=== PATIENT | male | born 1950 | race Caucasian/White ===

== ENCOUNTER → 2017-10-18 06:54 | Outpatient (CLI) | payer BC, SELFPAY ==
[2017-10-18 07:33] LABS: Absolute Lymphocyte Count 1.99 X10^3/ul (0.83-4.51); Absolute Neutrophil Count 3.2 X10^3/uL (2.0-7.7); Basophil# 0.01 X10^3/uL; Basophil% 0.2 % (0-1); Eosinophil# 0.21 X10^3/uL; Eosinophils% 3.4 % (0-5); Hematocrit 46.4 % (40-54); Hemoglobin 15.4 g/dl (13.0-16.5); Lymphocyte # 1.99 X10^3/ul (4.0); Lymphocyte % 32.7 % (19-41); Mean Corp Hgb Conc 33.2 g/gl (32-36); Mean Corpuscular Volume 90.3 fL (80-94); Monocyte# 0.66 X10^3/uL; Monocyte% 10.8 % (0-10); Neutrophil # 3.21 X10^3/uL (2.7-7.7); Neutrophil % 52.7 % (47-70); Platelet Count 198 K/mm3 (150-450); RBC Distribution Width CV 14.3 % (11.6-14.6); RBC Distribution Width SD 47.5 fl (35.1-43.9); Red Blood Count 5.14 M/mm3 (4.6-6.2); White Blood Count 6.1 K/mm3 (4.4-11.0)
[2017-10-18 07:34] LABS: POSITIVE COUNT NO; POSITIVE DIFFERENTIAL NO; POSITIVE MORPHOLOGY NO
[2017-10-18 07:36] LABS: ALB/GLOB Ratio 1.1 RATIO (0.9-2.4); AST(SGOT) 38 U/L (15-37); Alanine Aminotransfer ALT/SGPT 71 U/L (16-61); Albumin, Serum 3.9 g/dL (3.2-5.0); Alkaline Phosphatase 87 U/L (45-117); Anion Gap 6 (5-15); BUN 16 mg/dL (7-18); BUN/Creat Ratio 16.3 RATIO (10-20); Chloride 104 mmol/L (98-107); Cholesterol 128 mg/dL (200); Creatinine, Serum 0.98 mg/dL (0.70-1.30); EST Glomerular Filtration Rate 81 mL/min (>60); Est Glom Filt Rate - Afr Amer 98 mL/min (>60); Globulin 3.5 g/dL (2.2-4.2); Glucose 118 mg/dL (74-106); High Density Lipoprotein 50 mg/dL; Potassium 3.9 mmol/L (3.5-5.1); Protein, Total 7.4 g/dL (6.4-8.2); Sodium Level 140 mmol/L (136-145); Triglycerides 99 mg/dL; Very Low Density Lipoprotein 20 mg/dL (5-40)
[2017-10-18 08:51] LABS: Hemoglobin A1c 6.4 % (4.2-6.3)
== END ==
DX: E78.5 Hyperlipidemia, unspecified (principal); I25.10 Atherosclerotic heart disease of native coronary artery without angina pectoris; I10 Essential (primary) hypertension; R73.03 Prediabetes
CPT/HCPCS: 36415; 80053; 80061; 83036; 85025

== ENCOUNTER → 2018-03-01 06:37 | Outpatient (CLI) | payer BC, SELFPAY ==
[2018-03-01 07:35] LABS: ALB/GLOB Ratio 1.1 RATIO (0.9-2.4); AST(SGOT) 30 U/L (15-37); Alanine Aminotransfer ALT/SGPT 49 U/L (16-61); Albumin, Serum 3.9 g/dL (3.2-5.0); Alkaline Phosphatase 74 U/L (45-117); Anion Gap 7 (5-15); BUN 12 mg/dL (7-18); BUN/Creat Ratio 11.5 RATIO (10-20); Calcium,Total 8.7 mg/dL (8.5-10.1); Chloride 105 mmol/L (98-107); Cholesterol 118 mg/dL (200); Creatinine, Serum 1.04 mg/dL (0.70-1.30); EST Glomerular Filtration Rate 76 mL/min (>60); Est Glom Filt Rate - Afr Amer 91 mL/min (>60); Globulin 3.5 g/dL (2.2-4.2); Glucose 119 mg/dL (74-106); High Density Lipoprotein 48 mg/dL; Protein, Total 7.4 g/dL (6.4-8.2); Sodium Level 140 mmol/L (136-145); Triglycerides 131 mg/dL; Very Low Density Lipoprotein 26 mg/dL (5-40)
[2018-03-01 08:08] LABS: Hemoglobin A1c 6.1 % (4.2-6.3)
== END ==
DX: E78.5 Hyperlipidemia, unspecified (principal); I10 Essential (primary) hypertension; R73.9 Hyperglycemia, unspecified
CPT/HCPCS: 36415; 80053; 80061; 83036

== ENCOUNTER → 2018-09-15 08:51 | Outpatient (CLI) | payer BC, SELFPAY ==
[2018-09-15 10:03] LABS: ALB/GLOB Ratio 1.2 RATIO (0.9-2.4); AST(SGOT) 30 U/L (15-37); Alanine Aminotransfer ALT/SGPT 55 U/L (16-61); Alkaline Phosphatase 80 U/L (45-117); Anion Gap 6 (5-15); BUN 13 mg/dL (7-18); BUN/Creat Ratio 13.5 RATIO (10-20); Calcium,Total 8.7 mg/dL (8.5-10.1); Chloride 106 mmol/L (98-107); Cholesterol 115 mg/dL (200); Creatinine, Serum 0.96 mg/dL (0.70-1.30); EST Glomerular Filtration Rate 82 mL/min (>60); Est Glom Filt Rate - Afr Amer 100 mL/min (>60); Globulin 3.4 g/dL (2.2-4.2); Glucose 123 mg/dL (74-106); Hemoglobin A1c 6.2 % (4.2-6.3); High Density Lipoprotein 50 mg/dL; Potassium 4.2 mmol/L (3.5-5.1); Protein, Total 7.4 g/dL (6.4-8.2); Sodium Level 138 mmol/L (136-145); Triglycerides 85 mg/dL; Very Low Density Lipoprotein 17 mg/dL (5-40)
== END ==
DX: I10 Essential (primary) hypertension (principal); E78.5 Hyperlipidemia, unspecified; R73.9 Hyperglycemia, unspecified
CPT/HCPCS: 36415; 80053; 80061; 83036

== ENCOUNTER → 2019-04-02 10:09 | Outpatient (CLI) | payer BC, SELFPAY ==
[2019-04-02 11:57] LABS: Hemoglobin A1c 6.6 % (4.2-6.3)
[2019-04-02 12:13] LABS: ALB/GLOB Ratio 1.1 RATIO (0.9-2.4); AST(SGOT) 37 U/L (15-37); Alanine Aminotransfer ALT/SGPT 52 U/L (16-61); Albumin, Serum 3.8 g/dL (3.2-5.0); Alkaline Phosphatase 76 U/L (45-117); Anion Gap 9 (5-15); BUN 12 mg/dL (7-18); BUN/Creat Ratio 13.7 RATIO (10-20); Calcium,Total 8.7 mg/dL (8.5-10.1); Chloride 103 mmol/L (98-107); Creatinine, Serum 0.87 mg/dL (0.70-1.30); EST Glomerular Filtration Rate 92 mL/min (>60); Est Glom Filt Rate - Afr Amer 111 mL/min (>60); Globulin 3.5 g/dL (2.2-4.2); Glucose 110 mg/dL (74-106); Potassium 3.6 mmol/L (3.5-5.1); Protein, Total 7.3 g/dL (6.4-8.2); Sodium Level 139 mmol/L (136-145)
== END ==
DX: I10 Essential (primary) hypertension (principal); R73.9 Hyperglycemia, unspecified
CPT/HCPCS: 36415; 80053; 83036

== ENCOUNTER → 2020-02-14 06:52 | Outpatient (CLI) | payer BC, SELFPAY ==
[2020-02-14 07:46] LABS: ALB/GLOB Ratio 1.1 RATIO (0.9-2.4); AST(SGOT) 34 U/L (15-37); Alanine Aminotransfer ALT/SGPT 59 U/L (16-61); Albumin, Serum 3.8 g/dL (3.2-5.0); Alkaline Phosphatase 86 U/L (45-117); Anion Gap 5 (5-15); BUN 16 mg/dL (7-18); BUN/Creat Ratio 16.5 RATIO (10-20); Calcium,Total 8.6 mg/dL (8.5-10.1); Chloride 101 mmol/L (98-107); Cholesterol 134 mg/dL (200); Creatinine, Serum 0.97 mg/dL (0.70-1.30); EST Glomerular Filtration Rate 81 mL/min (>60); Est Glom Filt Rate - Afr Amer 98 mL/min (>60); Globulin 3.4 g/dL (2.2-4.2); Glucose 123 mg/dL (74-106); High Density Lipoprotein 44 mg/dL; Potassium 3.7 mmol/L (3.5-5.1); Protein, Total 7.2 g/dL (6.4-8.2); Sodium Level 136 mmol/L (136-145); Triglycerides 154 mg/dL; Very Low Density Lipoprotein 31 mg/dL (5-40)
[2020-02-14 08:11] LABS: Hemoglobin A1c 6.4 % (3.8-5.6)
== END ==
PROVIDERS: PCP Family Medicine
DX: I25.10 Atherosclerotic heart disease of native coronary artery without angina pectoris (principal); E78.5 Hyperlipidemia, unspecified
CPT/HCPCS: 36415; 80053; 80061; 83036

== ENCOUNTER → 2020-08-28 07:16 | Outpatient (CLI) | payer BC, SELFPAY ==
[2020-08-28 08:12] LABS: Hemoglobin A1c 6.4 % (3.8-5.6)
[2020-08-28 08:26] LABS: ALB/GLOB Ratio 1.1 RATIO (0.9-2.4); AST(SGOT) 26 U/L (15-37); Alanine Aminotransfer ALT/SGPT 45 U/L (16-61); Albumin, Serum 3.7 g/dL (3.2-5.0); Alkaline Phosphatase 99 U/L (45-117); Anion Gap 5 (5-15); BUN 13 mg/dL (7-18); BUN/Creat Ratio 13.3 RATIO (10-20); Calcium,Total 9.1 mg/dL (8.5-10.1); Chloride 106 mmol/L (98-107); Cholesterol 120 mg/dL (200); Creatinine, Serum 0.98 mg/dL (0.70-1.30); EST Glomerular Filtration Rate 81 mL/min (>60); Est Glom Filt Rate - Afr Amer 97 mL/min (>60); Globulin 3.3 g/dL (2.2-4.2); Glucose 126 mg/dL (74-106); High Density Lipoprotein 52 mg/dL; PSA,Total - Annual Screen 0.63 ng/mL (0.00-4.00); Potassium 4.3 mmol/L (3.5-5.1); Sodium Level 140 mmol/L (136-145); Triglycerides 75 mg/dL; Very Low Density Lipoprotein 15 mg/dL (5-40)
== END ==
PROVIDERS: PCP Family Medicine; Referring Provider Family Medicine; Visit Provider Family Medicine
DX: Z12.5 Encounter for screening for malignant neoplasm of prostate (principal); I10 Essential (primary) hypertension; E78.5 Hyperlipidemia, unspecified; R73.9 Hyperglycemia, unspecified
CPT/HCPCS: 36415; 80053; 80061; 83036; 84153; G0103

== ENCOUNTER → 2021-03-20 08:21 | Outpatient (CLI) | payer BC, SELFPAY ==
[2021-03-20 09:06] LABS: Hemoglobin A1c 6.2 % (3.8-5.6)
== END ==
PROVIDERS: PCP Family Medicine; Referring Provider Family Medicine; Visit Provider Family Medicine
DX: R73.9 Hyperglycemia, unspecified (principal)
CPT/HCPCS: 36415; 83036

== ENCOUNTER → 2022-01-20 | Outpatient (CLI) | payer BC, SELFPAY ==
[2022-01-20 10:56] LABS: Hemoglobin A1c 6.3 % (3.8-5.6)
== END | disposition home or self-care (01) ==
PROVIDERS: PCP Family Medicine; Referring Provider Family Medicine; Visit Provider Family Medicine
DX: R73.09 Other abnormal glucose (principal)
CPT/HCPCS: 36415; 83036

== ENCOUNTER → 2022-09-07 | Outpatient (CLI) | payer BC, SELFPAY ==
[2022-09-07 09:04] LABS: Cholesterol 122 mg/dL (200); High Density Lipoprotein 44 mg/dL; Triglycerides 107 mg/dL; Very Low Density Lipoprotein 21 mg/dL (5-40)
== END | disposition home or self-care (01) ==
LOC: LAB 07:58
PROVIDERS: PCP Family Medicine; Referring Provider Internal Medicine Cardiovascular Disease; Visit Provider Internal Medicine Cardiovascular Disease
DX: I25.10 Atherosclerotic heart disease of native coronary artery without angina pectoris (principal); E78.5 Hyperlipidemia, unspecified; I10 Essential (primary) hypertension
CPT/HCPCS: 36415; 80061

== ENCOUNTER → 2023-10-06 | Outpatient (CLI) | payer BC, SELFPAY ==
[2023-10-06 09:59] LABS: ALB/GLOB Ratio 1.2 RATIO (0.9-2.4); AST(SGOT) 28 U/L (15-37); Alanine Aminotransfer ALT/SGPT 58 U/L (16-61); Albumin, Serum 3.9 g/dL (3.2-5.0); Alkaline Phosphatase 73 U/L (45-117); Anion Gap 5 (5-15); BUN 14 mg/dL (7-18); BUN/Creat Ratio 13.7 RATIO (10-20); Calcium,Total 8.9 mg/dL (8.5-10.1); Chloride 105 mmol/L (98-107); Cholesterol 126 mg/dL (200); Creatinine, Serum 1.02 mg/dL (0.70-1.30); EST Glomerular Filtration Rate 76 mL/min (>60); Est Glom Filt Rate - Afr Amer 92 mL/min (>60); Globulin 3.2 g/dL (2.2-4.2); Glucose 134 mg/dL (74-106); High Density Lipoprotein 48 mg/dL; Potassium 3.8 mmol/L (3.5-5.1); Protein, Total 7.1 g/dL (6.4-8.2); Sodium Level 138 mmol/L (136-145); Triglycerides 112 mg/dL; Very Low Density Lipoprotein 22 mg/dL (5-40)
[2023-10-06 10:15] LABS: Hemoglobin A1c 6.4 % (3.8-5.6)
== END | disposition home or self-care (01) ==
LOC: LAB 09:10
PROVIDERS: PCP Family Medicine; Referring Provider Family Medicine; Visit Provider Family Medicine
DX: I10 Essential (primary) hypertension (principal); E78.5 Hyperlipidemia, unspecified; R73.09 Other abnormal glucose
CPT/HCPCS: 36415; 80053; 80061; 83036

== ENCOUNTER → 2024-05-01 | Outpatient (CLI) | payer BC, SELFPAY ==
--- OUTSIDE RECORDS SUMMARY | 2024-05-01 10:01 | XMS RPT_ITS | CCD ---
Author Organization [facility] ion Partnership [facility] Care Team Providers Care Manager Hydraulic Name Role Phone SHIMA BLANKENSHIP Referring Unavailable DARIO SOUSA MD Admitting Unavailable DARIO SOUSA MD Primary Care Unavailable DARIO SOUSA MD Attending Unavailable SHIMA BLANKENSHIP Consulting Unavailable PROVIDER, UNKNOWN Consulting Unavailable PROVIDER, UNKNOWN Consulting Unavailable PROVIDER, UNKNOWN Consulting Unavailable SHIMA BLANKENSHIP Consulting Unavailable ISMAEL LENTZ Admitting Unavailable ISMAEL LENTZ Primary Care Unavailable ISMAEL LENTZ Attending Unavailable PROVIDER, UNKNOWN Consulting Unavailable PROVIDER, UNKNOWN Consulting Unavailable PROVIDER, UNKNOWN Consulting Unavailable SHIMA BLANKENSHIP MD Unavailable BERLIN Unavailable Unavailable HENRIQUE, MICHAELA Unavailable Unavailable AVA WATTERS Unavailable Unavailable EMEKA BLANKENSHIP MD Unavailable JAMES MILIAN RN Unavailable Unavailable DAMON RODAS, Lisa HENDRICKSON Unavailable Eric OLIVO MD Unavailable DEIDRA PHILIPPE Unavailable Unavailable KEATON BARFIELD Unavailable Unavailable CHIQUITA HAYDEN Unavailable Unavailable Alecia Darling Unavailable Unavailable CARMEN RODAS, REUBEN Hopper Unavailable [phone] Misty RN, Nubia Unavailable Unavaila tone Crespo RN, Magda Unavailable Unavailable Unavailable Unavailable Medications Current Medications Medication Drug Class(es) Dates Sig (Normalized) Sig (Original) aspirin 81 mg delayed release oral tablet (6 sources) Platelet Aggregation Inhibitor, Nonsteroidal Anti-inflammatory Drug take 1 tablet by mouth once daily ASPIRIN ADULT LOW STRENGTH, 81MG (Oral Tablet Delayed Release) ; 1 daily (81 MG) Comments: OTC Comment on above: OTC atorvastatin 80 mg oral tablet (6 sources) HMG-CoA Reductase Inhibitor Start: 03-21-2024 atorvastatin 80 mg tablet ; 1 Tablet daily for 90 days Quantity: 90 {Tablet} Refills: 3 Ordered: 21-Mar-2024 MD SHIMA BLANKENSHIP Start: 21-Mar-2024 Start: 02-28-2023 atorvastatin 8 0 mg tablet ; 1 Tablet daily for 90 days Quantity: 90 {Tablet} Refills: 3 Ordered: 28-Feb-2023 MD SHIMA BLANKENSHIP Start: 28-Feb-2023 Comments: Mail order. Cecily Comment on above: Mail order. Cecily clopidogrel 75 mg oral tablet (12 sources) [id number] Platelet Inhibitor Start: 02-28-2023 clopidogreL 75 mg tablet ; 1 Tablet daily for 90 days Quantity: 90 {Tablet} Refills: 3 Ordered: 21-Mar-2024 MD SHIMA BLANKENSHIP Start: 21-Mar-2024 Comment on above: Mail order. losartan potassium 25 mg oral tablet (6 sources) Angiotensin 2 Receptor Yandel Start: 03-21-2024 losartan 25 mg tablet ; 1 Tablet daily for 90 days Quantity: 90 {Tablet} Refills: 3 Ordered: 21-Mar-2024 MD SHIMA BLANKENSHIP Start: 21-Mar-2024 Start: 02-28-2023 losartan 25 mg tablet ; 1 Tablet daily for 90 days Quantity: 90 {Tablet} Refills: 3 Ordered: 28-Feb-2023 MD SHIMA BLANKENSHIP Start: 28-Feb-2023 Comments: Mail order. Cecily Comment on above: Mail order. [place] 24 hr metoprolol succinate 25 mg extended release oral tablet (6 sources) beta-Adrenergic Yandel Start: 03-21-2024 metoprolol succinate ER 25 mg tablet,extended release 24 hr ; 1 Tablet daily for 90 days Quantity: 90 {Tablet} Refills: 3 Ordered: 21-Mar-2024 MD SHIMA BLANKENSHIP Start: 21-Mar-2024 Start: 02-28-2023 metoprolol suc cinate ER 25 mg tablet,extended release 24 hr ; 1 Tablet daily for 90 days Quantity: 90 {Tablet} Refills: 3 Ordered: 28-Feb-2023 MD SHIMA BLANKENSHIP Start: 28-Feb-2023 Comments: Mail order. Cecily Comment on above: Mail order. [place] sildenafil 20 mg oral tablet (6 sources) Phosphodiesterase 5 Inhibitor Start: 02-28-2023 sildenafil (pulmonary hypertension) 20 mg tablet ; 2-3 Tablet Tablet daily as needed for 0 days Quantity: 30 {Tablet} Refills: 2 Ordered: 28-Feb-2023 MD SHIMA BLANKENSHIP Start: 28-Feb-2023 Comments: Medication taken as needed. Comment on above: Medication taken as needed. Completed/Discontinued Medications Medication Drug Class(es) Dates Sig (Normalized) Sig (Original) atenolol 25 mg oral tablet (6 sources) beta-Adrenergic Yandel take 1 tablet by mouth once daily ATENOLOL, 25MG (Oral Tablet) ; 1 daily (25 MG) Status: Inactive codeine phosphate 2 mg/ml / guaiFENesin 20 mg/ml oral solution (6 sources) Opioid Agonist Start: 03-01-2016 End: 03-06-2016 take 1 [tsp_us] by mouth every four to six hours as needed for cough GUAIFENESIN AC, 100-10MG/5ML (Oral Syrup) ; 1 (one) teaspoon every 4-6 hours prn cough for 5 days Quantity: 4 {Ounce} Refills: 0 Ordered: 03-May-2016 MD Lisa JOSE Start: 01-Mar-2016 End: 06-Mar-2016 Status: Inactive Comments: Do not drive within 4 hours of taking Comment on above: Do not drive within 4 hours of taking DAILY MULTIPLE VITAMINS (Oral Tablet) (6 sources) take 1 tablet by mouth once daily DAILY MULTIPLE VITAMINS (Oral Tablet) ; 1 daily Status: Inactive FISH OIL, 1000MG (Oral Capsule) (6 sources) take 2 capsules by mouth once daily FISH OIL, 1000MG (Oral Capsule) ; 2 daily (1000 MG) Status: Inactive lisinopril 2.5 mg oral tablet (6 sources) Angiotensin Converting Enzyme Inhibitor take 1 tablet by mouth once daily LISINOPRIL, 2.5MG (Oral Tablet) ; 1 daily (2.5 MG) Status: Inactive niacin 500 mg oral tablet (6 sources) Nicotinic Acid take 1 tablet by mouth once daily NIACIN, 500MG (Oral Tablet) ; 1 daily (500 MG) Status: Inactive Paxlovid 300 mg (150 mg x 2)-100 mg tablets in a dose pack (EUA) (6 sources) Start: 06-17-2022 End: 02-28-2023 Paxlovid 300 mg (150 mg x 2)-100 mg tablets in a dose pack (EUA) ; 1 Packet as directed on dose pack;take TWO 150 mg tablets of nirmatrelvir with ONE 100 mg tablet of ritonavir twice daily for 5 days for 0 days Quantity: 1 {Packet} Refills: 0 Ordered: 28-Feb-2023 CODY Crespo Start: 17-Jun-2022 End: 28-Feb-2023 Status: Inactive pravastatin sodium 80 mg oral tablet (6 sources) HMG-CoA Reductase Inhibitor take 1 tablet by mouth once daily Pravastatin Sodium 80 MG Oral Tablet ; 1 daily (80 MG) Status: Inactive predniSONE 10 mg oral tablet (6 sources) Start: 01-17-2022 End: 01-29-2022 predniSONE 10 MG Oral Tablet ; 4 Tablets days 1,2,3; 3 tablets days 4,5,6: 2 tablets days 7,8,9: 1 tablet days 10,11,12 for 12 days Quantity: 30 {Tablet} Refills: 0 Ordered: 15-Feb-2022 MD SHIMA BLANKENSHIP Start: 17-Jan-2022 End: 29-Jan-2022 Status: Inactive Dispense as Written Comments: Take with food. Comment on above: Take with food. sulfamethoxazole 800 mg / trimethoprim 160 mg oral tablet (6 sources) Dihydrofolate Reductase Inhibitor Antibacterial, Sulfonamide Antimicrobial Start: 11-25-2011 End: 11-30-2011 take 1 tablet by mouth twice daily BACTRIM DS, 800-160MG (Oral Tablet) ; 1 (one) Tablet two times daily for 5 days Quantity: 10 {Tablet} Refills: 0 Ordered: 02-Dec-2011 MD REUBEN DARLING Start: 25-Nov-2011 End: 30-Nov-2011 Status: Inactive Comments: meds to be dispensed in office Comment on above: meds to be dispensed in office ticagrelor 90 mg oral tablet (6 sources) Start: 02-19-2018 End: 02-18-2019 take 1 tablet by mouth twice daily Brilinta 90 MG Oral Tablet ; 1 Tablet two times daily for 90 days Quantity: 180 {Tablet} Refills: 3 Ordered: 18-Feb-2019 CODY Jay Start: 19-Feb-2018 End: 18-Feb-2019 Status: Inactive Comments: Mail order. [facility] Comment on above: Mail order. [facility] zinc gluconate 50 mg oral tablet (6 sources) take 1 tablet by mouth once daily Zinc 50 MG Oral Tablet ; 1 daily (50 MG) Status: Inactive Comments: OTC Comment on above: OTC Problems Active Problems Problem Classification Problem Date Documented Date Episodic/Chronic Acute myocardial infarction (6 sources) Subendocardial infarction, initial episode of care 08-14-2018 Chronic Comment on above: Apr 2006 Administrative/social admission (20 sources) Patient encounter status; Translations: [Counseling, unspecified] 08-27-2020 Episodic Coronary atherosclerosis and other heart disease (20 sources) Coronary atherosclerosis of unspecified type of vessel, little traverse or graft; Translations: [Coronary arteriosclerosis] 02-28-2023 Chronic Comment on above: History of angioplas 2005 (no stent)History of MIStent 07/05/16 Coronary atherosclerosis and other heart disease (20 sources) Coronary atherosclerosis and other heart disease 02-11-2021 Diabetes mellitus without complication (20 sources) Hyperglycemia; Translations: [Hyperglycemia, unspecified] 02-11-2021 Episodic Comment on above: Prediabetes. A1C 6.4 %. A1c 6.2 in fall 2020 A1c 6.4% in September Disorders of lipid metabolism (20 sources) Hyperlipidemia; Translations: [Hyperlipidemia, unspecified] 02-28-2023 Chronic Essential hypertension (20 sources) Benign hypertension; Translations: [Essential (primary) hypertension] 02-28-2023 Chronic Comment on above: Stable. Headache; including migraine (20 sources) Headache; including migraine 02-11-2021 Hyperplasia of prostate (18 sources) Benign prostatic hyperplasia; Translations: [Benign prostatic hyperplasia with lower urinary tract symptoms] 08-27-2020 Chronic Immunizations and screening for infectious disease (18 sources) Encounter for immunization; Translations: [Other specified vaccinations against streptococcus pneumoniae [pneumococcus]] 02-19-2018 Episodic Miscellaneous mental health disorders (12 sources) Male erectile disorder; Translations: [Psychosexual dysfunction with inhibited sexual excitement] 02-28-2023 Chronic Mycoses (18 sources) Onychomycosis due to dermatophyte ; Translations: [Tinea unguium] 02-11-2021 Episodic Open wounds of extremities (6 sources) Open wound of forearm; Translations: [Unspecified open wound of unspecified forearm, initial encounter] 11-25-2011 Episodic Other aftercare (12 sources) Post-discharge follow-up; Translations: [Encounter for follow-up examination after completed treatment for conditions other than malignant neoplasm] 01-17-2022 Episodic Other injuries and conditions due to external causes (6 sources) At risk for falls ; Translations: [History of falling] 02-20-2017 Episodic Other male genital disorders (12 sources) Secondary erectile dysfunction; Translations: [Male erectile dysfunction, unspecified] 08-27-2020 Chronic Other nutritional; endocrine; and metabolic disorders (12 sources) Body mass index 30+ - obesity; Translations: [Obesity, unspecified] 02-12-2019 Chronic Other skin disorders (12 sources) Actinic keratosis; Translations: [Actinic keratosis] 02-28-2023 Episodic Other skin disorders (6 sources) Ingrowing toenail; Translations: [Ingrowing nail] 06-20-2016 Episodic Residual codes; unclassified (12 sources) Overweight; Translations: [Other specified conditions influencing health status] 08-20-2018 Episodic Retinal detachments; defects; vascular occlusion; and retinopathy (18 sources) Degenerative disorder of macula ; Translations: [Unspecified macular degeneration] 08-14-2018 Chronic Spondylosis; intervertebral disc disorders; other back problems (12 sources) Neck pain; Translations: [Cervicalgia] 01-17-2022 Episodic Unclassified (6 sources) [facility] Onset: 07-05-2016 07-08-2016 Comment on above: Heart cath, stent; D r Kassir Unclassified (6 sources) !Patient notification of lab results - Dr. Blankenship. The test(s) that you had done were/was an A1C (three month sugar average) (Your A1c is 6.3% (it was 6.2% last year). This is in the prediabetic range (5.8% - 6.4%). Continue a healthy diet and stay active.). You should call our office if you have any questions. 01-20-2022 Unclassified (6 sources) !Patient notification of lab results - Dr. Blankenship. The test(s) that you had done were/was an A1C (three month sugar average) and a CMP (kidneys, liver, nutrition, sugar). Your tests showed the following abnormalities: high A1C of 6.6% indicates you have moved from pre-diabetes into actual diabetes now . Please adjust your therapy by following the diabetic diet closely, staying physically active, and losing 2 pounds per month until your next visit. Please note that we have included copies of your results. 04-03-2019 Viral infection (18 sources) Disease caused by 2019-nCoV; Translations: [COVID-19] 06-17-2022 Episodic Past or Other Problems Problem Classification Problem Date Documented Da te Episodic/Chronic Unclassified (5 sources) HYPERTENSION - There has been no associated chest pain or edema (Pt said his legs do not swell, but they feel heavy at times.). 02-28-2023 Unclassified (5 sources) [ADDITIONAL REASON] Shoulder pain - Note for Shoulder pain : Pt c/o left shoulder ache and left hand tingling for about 1 month. 02-28-2023 Unclassified (6 sources) Cough - The onset of the cough has been sudden and has been occurring for 2 days. The course has been increasing. The cough is characterized as moist. The symptoms have been associated with body aches, fever (100.6 at home), headache, hoarseness and runny nose, while the symptoms have not been associated with dyspnea, night sweats, sore throat or wheezing. 06-17-2022 Unclassified (5 sources) Transition into care - The patient is transitioning into care from a hospital and a summary of care was reviewed. Note for Transition into care : Pt states no residual concussion symptoms. Had neck pain prior to the fall and this continues.Pt states Dr. Sousa recommended checking carotids. 01-17-2022 Unclassified (5 sources) [ADDITIONAL REASON] Neck Pain - This condition occurred without any known injury. Symptoms include neck pain (Difficulty looking up at times. Started when shaving.). 01-17-2022 Unclassified (6 sources) !Patient notification of lab results - Dr. Blankenship. The test(s) that you had done were/was an A1C (three month sugar average). The results of your testing were stable for your medical condition (Your A1c remains in the prediabetic range at 6.2%. It was 6.4% last year. Continue a healthy diet.) . You should call our office if you have any questions. 03-22-2021 Unclassified (6 sources) [ADDITIONAL REASON] Coronary Artery Disease (CAD) - Symptoms do not include chest pain, chest pressure, shortness of breath, jaw pain or orthopnea. 02-11-2021 Unclassified (5 sources) [ADDITIONAL REASON] Right foot toenail fungus - wants this looked at. 02-11-2021 Unclassified (6 sources) !Patient notification of lab results - Dr. Blankenship. The test(s) that you had done were/was an A1C (three month sugar average), a CMP (kidneys, liver, nutrition, sugar), a lipid panel (cholesterol and triglycerides) and a PSA (blood test for prostate cancer). The results of your testing were stable for your medical condition (Your A1c remains in the prediabetic range. Continue to watch your diet. Your other labs all look great.) . You should call our office if you have any questions. Please note that we have included copies of your results. 08-28-2020 Unclassified (5 sources) Coronary Artery Disease (CAD) - The last clinic visit was 12 month(s) ago. 02-17-2020 Unclassified (6 sources) !Patient notification of lab results - Fredis. The test(s) that you had done were/was an A1C (three month sugar average) and a CMP (kidneys, liver, nutrition, sugar). The results of your testing were stable for your medical condition (blood sugar is in the pre-diabetes stage) . Please note that we have included copies of your results and be aware that we have sent copies to Dr Parikh. 09-16-2018 Unclassified (6 sources) !Patient notification of lab results - Fredis. The test(s) that you had done were/was an A1C (three month sugar average), a CMP (kidneys, liver, nutrition, sugar) and a lipid panel (cholesterol and triglycerides). Your tests showed the following abnormalities: blood sugar is mildly elevated, consistent with pre-diabetes . Please note that we have included copies of your results and continue your current medication/therapy (including a diabetic diet). 03-01-2018 Unclassified (2 sources) HYPERTENSION - Note for HYPERTENSION : . 02-19-2018 Unclassified (6 sources) !Patient notification of lab results - Fredis. The test(s) that you had done were/was an A1C (three month sugar average), a CBC (checks for anemia and infection), a CMP (kidneys, liver, nutrition, sugar) and a lipid panel (cholesterol and triglycerides). Your tests showed the following abnormalities: blood sugar is borderline diabetes . Please adjust your therapy by following a low sweets, weight loss diet and increasing regular physical exercise. Please note that we have included copies of your results and be aware that we have sent copies to Dr Parikh, the new clinical appeals specialist. 10-18-2017 Unclassified (6 sources) HYPERTENSION - Note for HYPERTENSION : Pt was seeing [facility] Callejas at [facility].. 09-21-2017 Unclassified (6 sources) !Patient notification of lab results - Fredis. The test(s) that you had done were/was an A1C (three month sugar average) and a BMP (potassium, sodium, sugar, and kidney function). Your tests showed the following abnormalities: average blood sugar is high at 127, normal is less [id number]. This is consistent wit pre-diabetes . Please adjust your therapy by following a diabetic diet plan to help prevent progression on to full diabetes. Please note that we have included copies of your results and follow up as scheduled. 06-21-2016 Unclassified (6 sources) Foot Problem - This condition occurred without any known injury. Symptoms are located in both feet (great toe nails ingrown). Note for Foot problem : . 06-20-2016 Unclassified (6 sources) [ADDITIONAL REASON] Transition into care - Note for Transition into care : review labs (glucose) done by clinical appeals specialist. 06-20-2016 Unclassified (6 sources) cough - The onset of the cough has been acute and has been occurring in a persistent pattern for 2 days. The cough is characterized as dry. The symptoms have been associated with fever. Note for cough : Here for exam. 03-01-2016 Unclassified (6 sources) Injury - The date of the injury was on 11/24/11. The injury is described as being located in the forearm (right). Note for Injury : Last Tetanus unknown 11-25-2011 Unclassified (1 source) Shoulder pain - Note for Shoulder pain : Pt c/o left shoulder ache and left hand tingling for about 1 month. 02-28-2023 Unclassified (1 source) [ADDITIONAL REASON] HYPERTENSION - There has been no associated chest pain or edema (Pt said his legs do not swell, but they feel heavy at times.). 02-28-2023 Unclassified (1 source) Neck Pain - This condition occurred without any known injury. Symptoms include neck pain (Difficulty looking up at times. Started when shaving.). 01-17-2022 Unclassified (1 source) [ADDITIONAL REASON] Transition into care - The patient is transitioning into care from a hospital and a summary of care was reviewed. Note for Transition into care : Pt states no residual concussion symptoms. Had neck pain prior to the fall and this continues.Pt states Dr. Sousa recommended checking carotids. 01-17-2022 Unclassified (1 source) Right foot toenail fungus - wants this looked at. 02-11-2021 Unclassified (1 source) [ADDITIONAL REASON] Coronary Artery Disease (CAD) - The last clinic visit was 12 month(s) ago. 02-17-2020 Unclassified (4 sources) [ADDITIONAL REASON] HYPERTENSION - Note for HYPERTENSION : . 02-19-2018 Unclassified (4 sources) [ADDITIONAL REASON] Skin lesion - The skin lesion has been occurring for years. It has been unchanging in size. The skin lesion is characterized as brown. The skin lesion is located on the face (above right eyebrow). There has been associated itching. 03-21-2024 Results Test Name Value Interpretation Reference Range Facility Laboratory - Chemistry and C hemistry - challengeon 10-06-2023 Albumin [Mass/Vol] 3.9 g/dL Normal 3.2 - 5.0 g/dL [facility]; [facility] Work Phone: Albumin/Globulin [Mass ratio] 1.2 {ratio} Normal 0.9 - 2.4 {RATIO} [facility]; [facility] Work Phone: ALT [Catalytic activity/Vol] 58 U/L Normal 16 - 61 U/L [facility]; [facility] Work Phone: AST [Catalytic activity/Vol] 28 U/L Normal 15 - 37 U/L [facility]; [facility] Work Phone: Bilirubin [Mass/Vol] 0.80 mg/dL Normal 0.20 - 1.00 mg/dL [facility]; [facility]. Work Phone: Chloride [Moles/Vol] 105 mmol/L Normal 98 - 10 7 mmol/L [facility].; [facility]. Work Phone: Cholesterol [Mass/Vol] 126 mg/dL Normal [facility].; [facility] Work Phone: Cholesterol in HDL [Mass/Vol] 48 mg/dL Normal [facility]; [facility] Work Phone: Cholesterol in LDL [Mass/Vol] 56 mg/dL Normal 0 - 130 mg/dL [facility]; [facility]. Work Phone: Cholesterol in VLDL [Mass/Vol] 22 mg/dL Normal 5 - 40 mg/dL [facility].; [facility]. Work Phone: CO2 [Moles/Vol] 28.0 mmol/L Normal 21.0 - 32.0 mmol/L [facility].; [facility]. Work Phone: Creatinine [Mass/Vol] 1.02 mg/dL Normal 0.70 - 1.30 mg/dL [facility].; [facility]. Work Phone: GFR/1.73 sq M.predicted among non-blacks MDRD (S/P/Bld) [Vol rate/Area] 76 mL/min/{1.73_m2} Normal [facility].; [facility], [facility]. Work Phone: Globulin (S) [Mass/Vol] 3.2 g/dL Normal 2.2 - 4.2 g/dL [facility]; [facility] Work Phone: Glucose [Mass/Vol] 134 mg/dL Abnormal 74 - 106 mg/dL [facility]; [facility] Work Phone: Magnesium [Mass/Vol] 8.9 mg/dL Normal 8.5 - 1 0.1 mg/dL [facility]; [facility] Work Phone: Potassium [Moles/Vol] 3.8 mmol/L Normal 3.5 - 5.1 mmol/L [facility]; [facility] Work Phone: Sodium [Moles/Vol] 138 mmol/L Normal 136 - 145 mmol/L [facility]; [facility] Work Phone: Triglyceride [Mass/Vol] 112 mg/dL Normal [facility]; [facility] Work Phone: Urea nitrogen [Mass/Vol] 14 mg/dL Normal 7 - 18 mg/dL [facility]; [facility] Work Phone: Laboratory - Hematology and Cell countson 10-06-2023 HbA1c (Bld) [Mass fraction] 6.4 % Abnormal 3.8 - 5.6 [facility]; [facility] Work Phone: No Panel Informationon 10-05 ALK P 73 U/L Normal 45 - 117 U/L [facility]; [facility] Work Phone: BUN/CRE 13.7 {RATIO} Normal 10 - 20 {RATIO} [facility]; [facility] Work Phone: EST GFR - AA 92 mL/min Normal [facility]; [facility]. Work Phone: GAP 5 Normal 5 - 15 [facility]; [facility] Work Phone: T PROT 7.1 g/dL Normal 6.4 - 8.2 g/dL [facility]; [facility] Work Phone: Laboratory - Chemistry and C hemistry - challengeon 09-07-2022 Cholesterol [Mass/Vol] 122 mg/dL Normal [facility]; [facility] Work Phone: Cholesterol in HDL [Mass/Vol] 44 mg/dL Normal [facility]; [facility] Work Phone: Cholesterol in LDL [Mass/Vol] 57 mg/dL Normal 0 - 130 mg/dL [facility] [facility]; [facility] Work Phone: Cholesterol in VLDL [Mass/Vol] 21 mg/dL Normal 5 - 40 mg/dL [facility]; [facility], [facility] Work Phone: Triglyceride [Mass/Vol] 107 mg/dL Normal [facility]; [facility]. Work Phone: Laboratory - Microbiology an d Antimicrobial susceptibilityon 06-17-2022 FLUAV Ag IA Ql (Throat) Negative Normal [facility]; [facility] SARS-CoV-2 (COVID-19) RNA KRZYSZTOF+probe Ql (Unsp spec) Positive Abnormal [facility]; [facility] Laboratory - Hematology and Cell countson 01-20-2022 HbA1c (Bld) [Mass fraction] 6.3 % Abnormal 3.8 - 5.6 [facility]; [facility] Work Phone: EMERGENCY REPORTon 2 EMERGENCY REPORT [facility] EMERGENCY ROOM REPORT NAME ACCOUNT SEX AGE ADMIT DISCHARGE PT MED. RECORD# NUMBER DATE DATE TYPE PALLAVI [id number] David 71 12/24/21 12/25/21 2 IMMANUEL Sanchez [id number] ROOM: [facility] DATE OF : 1950 DICTATING PHYSICIAN: Richar Reeder HISTORY OF PRESENT ILLNESS: This is a 71-year-old male patient with a past medical history of NC in 2016 who presents after a syncopal episode and fall. The patient reports that he was out in his garage, and the next thing he knew he was waking up from the ground. He presented into the house, where he talked to his . His stated that he looked confused. He reported head pain afterwards and believed that he had fallen and hit his head. He does not remember any prodromal symptoms. He has been without fevers, chills, chest pain, shortness of breath, lightheadedness, dizziness, nausea, vomiting, or pelvic pain. He has been able to ambulate without difficulty since the incident. He was confused as to what date it was when his PLEASE SEE JOB [id number] FOR COMPLETE REPORT Dictated By: Richar Reeder MD 12/26/21 09:22 JOB #: [id number] Transcribed By: [email or web address] 12/27/21 11:32 Electronically signed by: Dr. Dilma Reeder MD 01/04/22 23:36 Page 1 of 1 IMMANUEL OLIVO Emergency Room Report Normal [facility] EMERGENCY REPORTon 2 EMERGENCY REPORT [facility] EMERGENCY ROOM REPORT NAME ACCOUNT SEX AGE ADMIT DISCHARGE PT MED. RECORD# NUMBER DATE DATE TYPE PALLAVI [id number] David 71 12/24/21 2 IMMANUEL Sanchez [id number] ROOM: DATE OF : 1950 DICTATING PHYSICIAN: Richar Reeder CHIEF COMPLAINT/HISTORY OF PRESENT ILLNESS: This is a 71-year-old male patient with a past medical history of NC with stent placed in 2016 presents with syncope episode. He reports being out in his garage and only remembers waking up from the ground. He presented inside the house where he saw his who stated he looked confused. He states having head pain and thinks that he fell onto the back of his head. He also has bilateral paraspinal tenderness in his neck and shoulders. He has been without fevers, chills, nausea, vomiting, chest pain, shortness of breath, lightheadedness, dizziness, abdominal pain, dysuria, difficulty with ambulation. PAST MEDICAL HISTORY: He had a stent placed in 2016. No other relevant surgical or past medical history or family history. He does have a history of hypertension as well. ALLERGIES: No known drug allergies. SOCIAL HISTORY: Immunizations up-to-date. Does not use illicit drugs, alcohol or tobacco. REVIEW OF SYSTEMS: Remainder of review of systems are unremarkable. PHYSICAL EXAMINATION: VITAL SIGNS: Blood pressure 132/73, pulse 82, respiratory rate of 16, temperature of 97, O2 95% on room air. HEENT: Head is with a hematoma to the occiput region with mild tenderness. No bleeding. Midface is stable. No intraoral injury. No malocclusion. NECK: Tenderness to palpation in the bilateral paraspinal region. MUSCULOSKELETAL: Chest is nontender to palpation. HEART: Regular rate and rhythm. No rubs, murmurs or clicks. LUNGS: Clear to auscultation bilaterally. ABDOMEN: Nontender. Nondistended. Pelvis is stable. NEUROLOGIC: Cranial nerves II through XII intact. Normal range of motion of upper and lower extremities. Normal sensation. Normal jagscr-jl-liyh, xizh-uj-facu and pronator and rapid alternating movement. DIAGNOSTIC DATA: EKG nondiagnostic for acute cardiac ischemia. No T wave inversions or ST depressions, elevations of concern. Troponin x1 within normal limits. CBC within normal limits. CMP with mild hypokalemia but otherwise unremarkable. Glucose is within normal limits. Page 1 of 2 IMMANUEL OLIVO Emergency Room Report IMMANUEL OLIVO : 1950 CT of head and neck without acute findings. Chest x-ray and pelvis x-ray without acute findings as well. MEDICAL DECISION MAKING/EMERGENCY DEPARTMENT COURSE AND TREATMENT: We obtained CT of head, neck, chest x-ray and pelvis x-ray. CBC, CMP, EKG, glucose and troponin. This is a 71-year-old male patient who presents with a syncopal event after apparently striking his head on the ground and loss of consciousness. Differentials considered and include but not limited to intracranial hemorrhage, cervical neck fracture, hypoglycemia, electrolyte abnormality, dehydration, anemia, ACS, dysrhythmia. I went over all findings with patient and answered all his questions. He is agreeable with admission to the hospital. I spoke with Dr. Sousa who is to discuss the case and he is willing to accept the patient for further management. PLAN/DISPOSITION: He is transferred to regular nursing floor in stable condition. Dictated By: Richar Reeder MD 12/24/21 19:13 JOB #: [id number] Transcribed By: al 12/26/21 11:00 Electronically signed by: Dr. Dilma Reeder MD 12/28/21 10:43 Page 2 of 2 IMMANUEL OLIVO Emergency Room Report Normal [facility] BMP with eGFRon 12-25-2021 AGE 71 years Normal [facility] Comment on above: Performed By: #### 2 76612 #### [facility],[address] [place] [address] Anion gap [Moles/Vol] 11 mmol/L Normal 10 - 20 mmol/L [facility] Comment on above: Performed By: #### 2 51527 #### [facility],[address] [place] [address] BMP with eGFR Normal [facility] Comment on above: Result Comment: BASI C METABOLIC PANEL Performed By: #### 2 81316 #### [facility],[address] [place], [place] [id number] Calcium [Mass/Vol] 8.2 mg/dL Abnormal 8.5 - 10. 1 mg/dL [facility] Comment on above: Performed By: #### 2 78285 #### [facility],[address] [place] [address] Chloride [Moles/Vol] 108 mmol/L Abnormal 98 - 10 7 mmol/L [facility] Comment on above: Performed By: #### 2 15223 #### [facility],[address] [place] [address] CO2 [Moles/Vol] 24.3 mmol/L Normal 21.0 - 32.0 mmol/L [facility] Comment on above: Performed By: #### 2 64940 #### [facility],[address] [place] [address] Creatinine [Mass/Vol] 0.93 mg/dL Normal 0.70 - 1.30 mg/dL [facility] Comment on above: Performed By: #### 2 17918 #### [facility],[address] [place], [place] [address] GFR/1.73 sq M.predicted among non-blacks MDRD (S/P/Bld) [Vol rate/Area] mL/min/{1.73_m2} Normal 60 - 999 [facility] Comment on above: Performed By: #### 2 10595 #### [facility],[address] [place] [address] Result Comment: ACCO RDING TO THE NATIONAL KIDNEY DISEASE EDUCATION PROGRAM(NKDE), A NORMAL eGFR IS A VALUE GREATER THAN OR EQUAL TO 60 ML/MIN/1.73 SQ METERS. CHRONIC KIDNEY DISEASE: <60mL/MIN/1.73 SQ METERS KIDNEY FAILURE: <15mL/MIN/1.73 SQ METERS THIS TEST SHOULD ONLY BE USED FOR PATIENTS 18 YEARS OF AGE AND OLDER. Glucose [Mass/Vol] 110 mg/dL Abnormal 74 - 106 mg/dL [facility] Comment on above: Performed By: #### 2 97590 #### [facility],[address] [place], [place] [id number] Potassium [Moles/Vol] 3.1 mmol/L Abnormal 3.5 - 5.1 mmol/L [facility] Comment on above: Performed By: #### 2 91585 #### [facility],[address] [place], [place] [address] Sodium [Moles/Vol] 140 mmol/L Normal 136 - 145 mmol/L [facility] Comment on above: Performed By: #### 2 75742 #### [facility],[address] [place] [address] Urea nitrogen [Mass/Vol] 20 mg/dL Abnormal 7 - 18 mg/dL [facility] Comment on above: Performed By: #### 2 73619 #### [facility],[address] [place] [address] 83480 CBC + DIFFon 12-25-2021 Baso # 0.00 x10EE3/UL Normal 0.00 - 0.10 [facility] Comment on above: Performed By: #### 2 50014 ####[facility],[address] [place] [address] 67944 Basophils/100 WBC (Bld) 0.3 % Normal 0.0 - 2.0 % [facility] Comment on above: Performed By: #### 2 91408 ####[facility],[address] [place] [address] CBC + DIFF Normal [facility] Comment on above: Result Comment: CBC- COMPLETE BLOOD COUNT Performed By: #### 2 04571 ####[facility],[address] [place] [address] EO # 0.10 x10EE3/UL Normal 0.00 - 0.50 [facility] Comment on above: Performed By: #### 2 33602 ####[facility],[address] [place] [address]337 Eosinophils/100 WBC (Bld) 1.3 % Normal 0.0 - 7.0 % [facility] Comment on above: Performed By: #### 2 76891 ####[facility],[address] [place] [address] 13060 Erythrocyte distribution width (RBC) [Ratio] 15.0 % Normal 12.0 - 15.6 % [facility] Comment on above: Performed By: #### 2 53536 ####[facility],[address] [place], [place] [address] Hematocrit (Bld) [Volume fraction] 40.6 % Normal 40.0 - 52.0 % [facility] Comment on above: Performed By: #### 2 29792 ####[facility],[address] [place] [address] Hemoglobin (Bld) [Mass/Vol] 13.5 g/dL Normal 13.0 - 17.5 g/dL [facility] Comment on above: Performed By: #### 2 57478 ####[facility],[address] [place] [address] Lymph # 2.40 x10EE3/UL Normal 0.80 - 2.80 [facility] Comment on above: Performed By: #### 2 03021 ####[place] [address] Lymphocytes/100 WBC (Bld) 33.1 % Normal 20.0 - 45.0 % [facility] Comment on above: Performed By: #### 2 53954 ####[facility],[address] [place] [address] MANUAL DIFF N/A Normal [facility] Comment on above: Performed By: #### 2 31486 ####[facility],[address] [place] [address] MCH (RBC) [Entitic mass] 30 pg Normal 27 - 33 pg [facility] Comment on above: Performed By: #### 2 51824 ####[facility],[address] [place] [address] MCHC 33 X10 3 Normal 32 - 36 [facility] Comment on above: Performed By: #### 2 34219 ####[facility],[address] [place] [address] MCV (RBC) [Entitic vol] 90 fL Normal 81 - 98 fL [facility] Comment on above: Performed By: #### 2 47361 ####[facility],[address] [place] [address] [place] # 0.80 x10EE3/UL Normal 0.20 - 1.00 [facility] Comment on above: Performed By: #### 2 93369 ####[facility],[address] [place] [address] MONOS % 11.4 % High 0.0 - 10.0 [facility] Comment on above: Performed By: #### 2 25504 ####[facility],[address] [place] [address] Morphology Harlan (Bld) [Interp] N/A Normal [facility] Comment on above: Result Comment: {CD] Performed By: #### 2 35653 ####[facility],[address] [place] [address] Neut # 3.90 x10EE3/UL Normal 1.50 - 7.10 [facility] Comment on above: Performed By: #### 2 92839 ####[place] [address] Neutrophils/100 WBC (Bld) 53.9 % Normal 46.0 - 76.0 % [facility] Comment on above: Performed By: #### 2 33877 ####[place] [address] PLATELET 181 x10EE3/UL Normal 150 - 450 [facility] Comment on above: Performed By: #### 2 74764 ####[place] [address] Platelet mean volume (Bld) [Entitic vol] 8.4 fL Normal 6.4 - 10.5 fL [facility] Comment on above: Result Comment: AUTO MATED DIFFERENTIAL Performed By: #### 2 07872 ####[place] [address] RBC 4.50 x 10EE6/UL Normal 4.50 - 6.00 [facility] Comment on above: Performed By: #### 2 18844 ####[facility],[address] [place] [address] WBC 7.3 x 10EE3/UL Normal 4.5 - 10.8 [facility] Comment on above: Performed By: #### 2 69925 ####[facility],[address] [place], [place] [address] Laboratory - Chemistry and C hemistry - challengeon 12-25-2021 GFR/1.73 sq M.predicted among blacks MDRD (S/P/Bld) [Vol rate/Area] mL/min/{1.73_m2} Normal 60 - 999 {ML/MINUTE} [employer] [facility].; [employer] [facility] [employer] [facility], [employer]. Work Phone: GFR/1.73 sq M.predicted MDRD (S/P/Bld) [Vol rate/Area] mL/min/{1.73_m2} Normal 60 - 999 {ML/MINUTE} [employer] [facility].; [employer] [facility] [employer] [facility], [employer]. Work Phone: Urea nitrogen (U) [Mass/Vol] 6.4 pg/mL Normal 0.0 - 76.2 pg/mL [facility].; [employer] [facility] [employer] [facility]. Work Phone: Urea nitrogen (U) [Mass/Vol] 5.2 pg/mL Normal 0.0 - 76.2 pg/mL [facility].; [employer] [facility] [employer] [facility]. Work Phone: Urea nitrogen (U) [Mass/Vol] 5.5 pg/mL Normal 0.0 - 76.2 pg/mL [facility].; [employer] [facility] [employer] [facility]. Work Phone: Laboratory - Hematology and Cell countson 12-25-2021 Basophils (Bld) [#/Vol] 0.00 {x10EE3/UL} Normal 0.00 - 0.10 {x10EE3/UL} [employer] [facility].; [employer] [facility] [employer], [employer]. Work Phone: Eosinophils (Bld) [#/Vol] 0.10 {x10EE3/UL} Normal 0.00 - 0.50 {x10EE3/UL} [facility]; [facility]. Work Phone: Lymphocytes (Bld) [#/Vol] 2.40 {x10EE3/UL} Normal 0.80 - 2.80 {x10EE3/UL} [facility]; [facility]. Work Phone: MCHC (RBC) [Mass/Vol] 33 {X10_3} Normal 32 - 3 6 {X10_3} [facility]; [facility]. Work Phone: Monocytes (Bld) [#/Vol] 0.80 {x10EE3/UL} Normal 0.20 - 1.00 {x10EE3/UL} [facility].; [employer] [facility]. Work Phone: Monocytes/100 WBC (Bld) 11.4 % Abnormal 0.0 - 10.0 % [facility] HospitalM[employer]; [facility]. Work Phone: Neutrophils (Bld) [#/Vol] 3.90 {x10EE3/UL} Normal 1.50 - 7.10 {x10EE3/UL} [facility] Center[facility]; [facility]. Work Phone: Platelets (Bld) [#/Vol] 181 {x10EE3/UL} Normal 150 - 450 {x10EE3/UL} [facility] Center[facility]; [facility]. Work Phone: RBC (Bld) [#/Vol] 4.50 {x_10EE6/UL} Normal 4.50 - 6.00 {x_10EE6/UL} [facility]; [facility]. Work Phone: WBC (Bld) [#/Vol] 7.3 {x_10EE3/UL} Normal 4.5 - 10.8 {x_10EE3/UL} [facility] [employer] [facility].; [email or web address] [facility] [employer] [facility]. Work Phone: No Panel Informationon 12-25 AGE 71 {years} Normal [facility] [employer] [facility].; [email or web address] [facility]. Work Phone: BMP with eGFR Normal [facility] [employer] [facility].; [email or web address] [facility] [employer] [facility]. Work Phone: CBC + DIFF Normal [facility].; [email or web address] [facility] [employer] [facility]. Work Phone: TROPONIN I, HIGH SENSITIVITY on 12-25-2021 HS TROPONIN 5.2 pg/mL Normal 0.0 - 76.2 [facility] Comment on above: Performed By: #### 2 38165 #### [facility],[address] [place] [address] HS TROPONIN 6.4 pg/mL Normal 0.0 - 76.2 [facility] Comment on above: Performed By: #### 2 38363 #### [facility],[address] [place], [place] [address] HS TROPONIN 5.5 pg/mL Normal 0.0 - 76.2 [facility] Comment on above: Performed By: #### 2 31884 #### [facility],[address] [place] [address] 33372 CBC + DIFFon 12-24-2021 Baso # 0.00 x10EE3/UL Normal 0.00 - 0.10 [facility] Comment on above: Performed By: #### 2 17513 ####[facility],[address] [place], [place] [address] Basophils/100 WBC (Bld) 0.5 % Normal 0.0 - 2.0 % [facility] Comment on above: Performed By: #### 2 46041 ####[facility],[address] [place] [address] CBC + DIFF Normal [facility] Comment on above: Result Comment: CBC- COMPLETE BLOOD COUNT Performed By: #### 2 25018 ####[facility],[address] [place] [address] EO # 0.10 x10EE3/UL Normal 0.00 - 0.50 [facility] Comment on above: Performed By: #### 2 68047 ####[place] [address] Eosinophils/100 WBC (Bld) 1.3 % Normal 0.0 - 7.0 % [facility] Comment on above: Performed By: #### 2 51384 ####[facility],[address] [place] [address] Erythrocyte distribution width (RBC) [Ratio] 14.9 % Normal 12.0 - 15.6 % [facility] Comment on above: Performed By: #### 2 08905 ####[place] [address] Hematocrit (Bld) [Volume fraction] 43.4 % Normal 40.0 - 52.0 % [facility] Comment on above: Performed By: #### 2 94578 ####[facility],[address] [place] [address] Hemoglobin (Bld) [Mass/Vol] 14.3 g/dL Normal 13.0 - 17.5 g/dL [facility] Comment on above: Performed By: #### 2 83442 ####[facility],[address] [place] [address] Lymph # 2.00 x10EE3/UL Normal 0.80 - 2.80 [facility] Comment on above: Performed By: #### 2 49739 ####[place] [address] Lymphocytes/100 WBC (Bld) 36.3 % Normal 20.0 - 45.0 % [facility] Comment on above: Performed By: #### 2 88409 ####[facility],[address] [place] [address] MANUAL DIFF N/A Normal [facility] Comment on above: Performed By: #### 2 44886 ####[facility],[address] [place] [address] MCH (RBC) [Entitic mass] 30 pg Normal 27 - 33 pg [facility] Comment on above: Performed By: #### 2 96740 ####[place] [address] MCHC 33 X10 3 Normal 32 - 36 [facility] Comment on above: Performed By: #### 2 52006 ####[place] [address] MCV (RBC) [Entitic vol] 91 fL Normal 81 - 98 fL [facility] Comment on above: Performed By: #### 2 94144 ####[place] [address] [place] # 0.60 x10EE3/UL Normal 0.20 - 1.00 [facility] Comment on above: Performed By: #### 2 35849 ####[facility],[address] [place] [address] MONOS % 10.4 % High 0.0 - 10.0 [facility] Comment on above: Performed By: #### 2 86318 ####[place] [address] Morphology Harlan (Bld) [Interp] N/A Normal [facility] Comment on above: Result Comment: {CD] Performed By: #### 2 64451 ####[place] [address] Neut # 2.80 x10EE3/UL Normal 1.50 - 7.10 [facility] Comment on above: Performed By: #### 2 81439 ####[facility],[address] [place] [address] 51283 Neutrophils/100 WBC (Bld) 51.5 % Normal 46.0 - 76.0 % [facility] Comment on above: Performed By: #### 2 31180 ####[facility],[address] [place] [address] 67637 PLATELET 198 x10EE3/UL Normal 150 - 450 [facility] Comment on above: Performed By: #### 2 64703 ####[facility],[address] [place] [address] 62336 Platelet mean volume (Bld) [Entitic vol] 8.1 fL Normal 6.4 - 10.5 fL [facility] Comment on above: Result Comment: AUTO MATED DIFFERENTIAL Performed By: #### 2 22112 ####[facility],[address] [place] [address] 47278 RBC 4.78 x 10EE6/UL Normal 4.50 - 6.00 [facility] Comment on above: Performed By: #### 2 82170 ####[facility],[address] [place] [address] 72658 WBC 5.4 x 10EE3/UL Normal 4.5 - 10.8 [facility] Comment on above: Performed By: #### 2 49883 ####[facility],[address] [place] [address] 02815 CHEST 2 VIEWSon 12-24-2021 CHEST 2 VIEWS [place] [address] Patient: IMMANUEL OLIVO Phone#: : 1950 Age: 71 Gender: M Pt. Type: ER Account: [id number] Location: [id number] Ordering: DR. RICHAR REEDER Exam Date: 12/24/2021/17:18 Family Phys: SHIMA BLANKENSHIP Charge Code: [id number] Physician: [place] Order #: [id number] DLP Dose#: PROCEDURE: X-RAY CHEST 2 VIEWS COMPARISON: None. INDICATIONS: Fall. FINDINGS: LUNGS: Normal. No significant pulmonary parenchymal abnormalities. VASCULATURE: Normal. Unremarkable pulmonary vasculature. CARDIAC: Normal. No cardiac silhouette abnormality or cardiomegaly. MEDIASTINUM: Normal. No visible mass or adenopathy. PLEURA: Normal. No effusion or pleural thickening. BONES: Normal. No fracture or visible bony lesion. OTHER: Negative. CONCLUSION: No acute disease. Dictated by: Brenda Ibanez MD on 12/25/2021 at 10:43 Approved by: Brenda Ibanez MD on 12/25/2021 at 10:44 Normal [facility] CMP with eGFRon 12-24-2021 AGE 71 years Normal [facility] Comment on above: Performed By: #### 2 20586 #### [facility],[address] [place] [address] 42748 Albumin [Mass/Vol] 4.0 g/dL Normal 3.4 - 5.0 g/dL [facility] Comment on above: Performed By: #### 2 37637 #### [facility],[address] [place] [address] 08111 Albumin/Globulin [Mass ratio] 1.4 {ratio} Normal 0.9 - 1.6 [facility] Comment on above: Performed By: #### 2 50972 #### [facility],[address] [place] [address] 48821 ALK PHOS 85 U/L Normal 46 - 116 U/L [facility] Comment on above: Performed By: #### 2 24174 #### [facility],[address] [place] [address] 53579 ALT [Catalytic activity/Vol] 48 U/L Normal 16 - 63 U/L [facility] Comment on above: Performed By: #### 2 88033 #### [facility],[address] [place] [address] 17073 Anion gap [Moles/Vol] 13 mmol/L Normal 10 - 20 mmol/L [facility] Comment on above: Performed By: #### 2 65380 #### [facility],[address] [place] [address] 58117 AST [Catalytic activity/Vol] 29 U/L Normal 15 - 37 U/L [facility] Comment on above: Performed By: #### 2 00647 #### [facility],[address] [place] [address] 35708 B/C RATIO 22 ratio Normal 0 - 30 [facility] Comment on above: Performed By: #### 2 67048 #### [facility],[address] [place] [address] 67441 Bilirubin [Mass/Vol] 0.8 mg/dL Normal 0.2 - 1 .0 mg/dL [facility] Comment on above: Performed By: #### 2 64111 #### [facility],[address] [place] [address] 84022 Calcium [Mass/Vol] 8.9 mg/dL Normal 8.5 - 10. 1 mg/dL [facility] Comment on above: Performed By: #### 2 15625 #### [facility],[address] [place] [address] 92092 Chloride [Moles/Vol] 107 mmol/L Normal 98 - 10 7 mmol/L [facility] Comment on above: Performed By: #### 2 38199 #### [facility],[address] [place] [id number] CMP with eGFR Normal [facility] Comment on above: Result Comment: COMP REHENSIVE METABOLIC PANEL Performed By: #### 2 [id number] #### [facility],[address] [place] [address]648 CO2 [Moles/Vol] 25.8 mmol/L Normal 21.0 - 32.0 mmol/L [facility] Comment on above: Performed By: #### 2 [id number] #### [place] [address] Creatinine [Mass/Vol] 1.00 mg/dL Normal 0.70 - 1.30 mg/dL [facility] Comment on above: Performed By: #### 2 [id number] #### [place] [address] GFR/1.73 sq M.predicted among non-blacks MDRD (S/P/Bld) [Vol rate/Area] mL/min/{1.73_m2} Normal 60 - 999 [facility] Comment on above: Performed By: #### 2 06914 #### [place] [address] Result Comment: ACCO RDING TO THE NATIONAL KIDNEY DISEASE EDUCATION PROGRAM(NKDE), A NORMAL eGFR IS A VALUE GREATER THAN OR EQUAL TO 60 ML/MIN/1.73 SQ METERS. CHRONIC KIDNEY DISEASE: <60mL/MIN/1.73 SQ METERS KIDNEY FAILURE: <15mL/MIN/1.73 SQ METERS THIS TEST SHOULD ONLY BE USED FOR PATIENTS 18 YEARS OF AGE AND OLDER. Globulin (S) [Mass/Vol] 2.9 g/dL Normal 1.5 - 3.8 g/dL [facility] Comment on above: Performed By: #### 2 05084 #### [place] [address] Glucose [Mass/Vol] 132 mg/dL Abnormal 74 - 106 mg/dL [facility] Comment on above: Performed By: #### 2 [id number] #### [place] [address] Potassium [Moles/Vol] 3.3 mmol/L Abnormal 3.5 - 5.1 mmol/L [facility] Comment on above: Performed By: #### 2 49742 #### [place] [id number] Protein [Mass/Vol] 6.9 g/dL Normal 6.4 - 8.2 g/dL [facility] Comment on above: Performed By: #### 2 94736 #### [facility],[address] [place] [address] Sodium [Moles/Vol] 142 mmol/L Normal 136 - 145 mmol/L [facility] Comment on above: Performed By: #### 2 [id number] #### [facility],[address] [place] [address]67 Urea nitrogen [Mass/Vol] 22 mg/dL Abnormal 7 - 18 mg/dL [facility] Comment on above: Performed By: #### 2 [id number] #### [facility],[address] [place] [address] BRAIN W/O CONTRASTon - CT BRAIN W/O CONTRAST [place] [address] Patient: IMMANUEL OLIVO Phone#: : 1950 Age: 71 Gender: M Pt. Type: ER Account: [id number] Location: [facility] Ordering: DR. RICHAR REEDER Exam Date: 12/24/2021/17:00 Family Phys: SHIMA BLANKENSHIP Charge Code: [id number] Physician: [place] Order #: [id number] DLP Dose#: 57.5mGy PROCEDURE: CT BRAIN WITHOUT CONTRAST COMPARISON: None. INDICATIONS: Fall. TECHNIQUE: CT images were obtained without contrast material. All CT scans at this facility use dose modulation, iterative reconstruction, and/or weight based dosing when appropriate to reduce radiation dose to as low as reasonably achievable. IV CONTRAST: No IV contrast used,0ml TOTAL DOSE: 57.5 CTDIvol(mGy) FINDINGS: CEREBRUM: Age-appropriate atrophy is present, without visible acute hemorrhage or lesion. CEREBELLUM: No edema, hemorrhage, mass, acute infarction, or inappropriate atrophy. BRAINSTEM: No edema, hemorrhage, mass, acute infarction, or inappropriate atrophy. CSF SPACES: Ventricles, cisterns, and sulci are appropriate for age. No hydrocephalus, subarachnoid hemorrhage, or mass. SKULL: No mass or other significant visible lesion. SINUSES: There is mucosal thickening in the right maxillary sinus. ORBITS: Limited views are unremarkable. OTHER: Negative. CONCLUSION: No acute disease. Dictated by: Brenda Ibanez MD on 12/24/2021 at 17:18 Approved by: Brenda Ibanez MD on 12/24/2021 at 17:19 [address] [facility] CT CERVICAL W/O CONTRASTon 0 12-24-2021 CT CERVICAL W/O CONTRAST [place] [address] Patient: IMMANUEL OLIVO Phone#: : 1950 Age: 71 Gender: M Pt. Type: ER Account: [id number] Location: [facility] Ordering: DR. RICHAR REEDER Exam Date: 12/24/2021/17:00 Family Phys: SHIMA BLANKENSHIP Charge Code: [id number] Physician: [place] Order #: [id number] DLP Dose#: PROCEDURE: CT CERVICAL WITHOUT CONTRAST COMPARISON: None. INDICATIONS: Fall. TECHNIQUE: Multi-planar CT images were created without intravenous contrast. All CT scans at this facility use dose modulation, iterative reconstruction, and/or weight based dosing when appropriate to reduce radiation dose to as low as reasonably achievable. IV CONTRAST: No IV contrast used,ml TOTAL DOSE: CTDIvol(mGy) FINDINGS: CRANIOCERVICAL AREA: Normal foramen magnum with no Chiari malformation. PARASPINAL AREA: Normal with no visible mass. BONES: No fracture, pars defect, or osseous lesion. There is straightening of the normal cervical lordosis. CERVICAL DISC LEVELS: C2-C3: No significant disc/facet abnormality, spinal stenosis, or foraminal stenosis. C3-C4: No significant disc/facet abnormality, spinal stenosis, or foraminal stenosis. C4-C5: No significant disc/facet abnormality, spinal stenosis, or foraminal stenosis. C5-C6: There is mild disc space narrowing. Bony hypertrophy is present with mild foraminal narrowing. C6-C7: Disc space narrowing is present. Osteophytes are present with mild bilateral foraminal narrowing. C7-T1: Disc space narrowing is present. Osteophytes are present with mild bilateral foraminal narrowing. CONCLUSION: Continued Report - Page 2 of 2 Patient: IMMANUEL OLIVO Phone#: : 1950 Age: 71 Gender: M Pt. Type: ER Account: [id number] Location: 052 Ordering: DR. RICHAR REEDER Exam Date: 12/24/2021/17:00 Family Phys: SHIMA BLANKENSHIP Charge Code: [id number] Physician: [place] Order #: [id number] DLP Dose#: 1. Mild degenerative changes are present. There is no evidence of acute fracture or subluxation. Dictated by: Brenda Ibanez MD on 12/24/2021 at 17:19 Approved by: Bernda Ibanez MD on 12/24/2021 at 17:21 Normal [facility] Laboratory - Chemistry and C hemistry - challengeon 12-24-2021 Albumin [Mass/Vol] 1.4 g/dL Normal 0.9 - 1.6 [facility] Work Phone: GFR/1.73 sq M.predicted among blacks MDRD (S/P/Bld) [Vol rate/Area] mL/min/{1.73_m2} Normal 60 - 999 {ML/MINUTE} [facility] Work Phone: GFR/1.73 sq M.predicted MDRD (S/P/Bld) [Vol rate/Area] mL/min/{1.73_m2} Normal 60 - 999 {ML/MINUTE} [facility] Work Phone: Urea nitrogen (U) [Mass/Vol] 5.2 pg/mL Normal 0.0 - 76.2 pg/mL [facility]; [facility]. Work Phone: Urea nitrogen/Creatinine [Mass ratio] 22 {ratio} Normal 0 - 30 {ratio} [facility]; [facility]. Work Phone: Laboratory - Hematology and Cell countson 12-24-2021 Basophils (Bld) [#/Vol] 0.00 {x10EE3/UL} Normal 0.00 - 0.10 {x10EE3/UL} [facility].; [facility] Work Phone: Eosinophils (Bld) [#/Vol] 0.10 {x10EE3/UL} Normal 0.00 - 0.50 {x10EE3/UL} [facility] Work Phone: Lymphocytes (Bld) [#/Vol] 2.00 {x10EE3/UL} Normal 0.80 - 2.80 {x10EE3/UL} [facility].; [facility]. Work Phone: MCHC (RBC) [Mass/Vol] 33 {X10_3} Normal 32 - 3 6 {X10_3} [facility]. Work Phone: Monocytes (Bld) [#/Vol] 0.60 {x10EE3/UL} Normal 0.20 - 1.00 {x10EE3/UL} [facility]; [facility]. Work Phone: Monocytes/100 WBC (Bld) 10.4 % Abnormal 0.0 - 10.0 % [facility]; [facility]. Work Phone: Neutrophils (Bld) [#/Vol] 2.80 {x10EE3/UL} Normal 1.50 - 7.10 {x10EE3/UL} [facility]; [facility], [employer]. Work Phone: Platelets (Bld) [#/Vol] 198 {x10EE3/UL} Normal 150 - 450 {x10EE3/UL} [facility].; [facility] Work Phone: RBC (Bld) [#/Vol] 4.78 {x_10EE6/UL} Normal 4.50 - 6.00 {x_10EE6/UL} [facility].; [facility] Work Phone: WBC (Bld) [#/Vol] 5.4 {x_10EE3/UL} Normal 4.5 - 10.8 {x_10EE3/UL} [facility].; [facility], [employer]. Work Phone: No Panel Informationon 12-24 AGE 71 {years} Normal [facility].; [facility]. Work Phone: CBC + DIFF Normal [facility].; [facility], [employer]. Work Phone: CMP with eGFR Normal [facility].; [facility], [employer]. Work Phone: PELVIS 1 or 2 VIEWSon 2021 PELVIS 1 or 2 VIEWS [place] [address] Patient: IMMANUEL OLIVO Phone#: : 1950 Age: 71 Gender: M Pt. Type: ER Account: [id number] Location: 052 Ordering: DR. RICHAR REEDER Exam Date: 12/24/2021/17:19 Family Phys: SHIMA BLANKENSHIP Charge Code: [id number] Physician: [place] Order #: [id number] DLP Dose#: PROCEDURE: X-RAY PELVIS AP COMPARISON: None. INDICATIONS: Fall. FINDINGS: BONES: Mild degenerative changes are present at the hips. There is no evidence of acute bone abnormality. SOFT TISSUES: Negative. No visible soft tissue swelling. EFFUSION: None visible. OTHER: Negative. CONCLUSION: No acute disease. Dictated by: Brenda Ibanez MD on 12/25/2021 at 10:44 Approved by: Brenda Ibanez MD on 12/25/2021 at 10:44 Normal [facility] TROPONIN I, HIGH SENSITIVITY on 12-24-2021 HS TROPONIN 5.2 pg/mL Normal 0.0 - 76.2 [facility] Comment on above: Performed By: #### 2 [id number] #### [facility],[address] [place] [address] NM CARDIAC STRESS (SPECT) W/ TREADMILLon 04-19-2021 NM CARDIAC STRESS (SPECT) W/TREADMILL [place] [address] Patient: IMMANUEL OLIVO Phone#: : 1950 Age: 71 Gender: M Pt. Type: Out Account: [id number] Location: Ordering: DR. ISMAEL LENTZ Exam Date: 04/19/2021/6:51 Family Phys: SHIMA VICTORIAD Charge Code: [id number] Physician: [place] Order #: [id number] DLP Dose#: PROCEDURE: CARDIAC STRESS SPECT WITH TREADMILL EXERCISE HISTORY: Patient is 71-year-old male with history of CAD COMPARISON: None. INDICATIONS: Chest pain TECHNIQUE: Resting and stress SPECT images acquired in the horizontal long, vertical long and short axis views. Protocol: Jared Duration: 06:00 minutes Peak Heart Rate: 127 bpm, which is 85% of maximum predicted heart rate. Workload: 7.0 METs REST DOSE: 10.7 mCi Sestamibi. STRESS DOSE: 34.3 mCi Sestamibi. INTERPRETATION: Resting Images: Resting images showed mild perfusion defect in the mid to distal anterior wall and basal to distal inferior wall. There was noted subdiaphragmatic attenuation artifact seen in rest images Stress Images: Stress images showed mild perfusion defect in the mid to distal anterior wall and basal to distal inferior wall unchanged from resting images. There are no associated wall motion abnormality seen. SDS score is 1. There is noted diaphragmatic and soft tissue attenuation artifact seen in rotating planar images. Gated SPECT/wall motion: Gated SPECT showed calculated ejection fraction of 63%. There are no regional wall motion abnormality seen. TID ratio is normal. CONCLUSION: 1. Nuclear stress test showed no conclusive evidence of reversible ischemia. 2. There is a fixed defect the mid to distal anterior wall and basal to distal inferior wall without associated wall motion abnormality. Suspect these defects from soft tissue attenuation and Continued Report - Page 2 of 2 Patient: IMMANUEL OLIVO Phone#: : 1950 Age: 71 Gender: M Pt. Type: Out Account: [id number] Location: Ordering: DR. ISMAEL LENTZ Exam Date: 04/19/2021/6:51 Family Phys: SHIMA BLANKENSHIP Charge Code: [id number] Physician: [place] Order #: [id number] DLP Dose#: diaphragmatic attenuation artifacts as seen in rotating planar images. Infarct cannot be completely ruled out. 3. Calculated ejection fraction is 63% with normal wall motion. TID ratio is normal. 4. There are no prior studies for comparison. Dictated by: HANNAH JACKSON MD on 04/19/2021 at 11:10 Approved by: HANNAH JACKSON MD on 04/19/2021 at 11:20 Normal [facility] NM EXERCISE STRESS TEST (W/C ARDIAC STUDYon 04-19-2021 NM EXERCISE STRESS TEST (W/CARDIAC STUDY [place] [address] Patient: IMMANUEL OLIVO Phone#: : 1950 Age: 71 Gender: M Pt. Type: Out Account: [id number] Location: Ordering: DR. ISMAEL LENTZ Exam Date: 04/19/2021/7:06 Family Phys: Charge Code: [id number] Physician: [place] Order #: [id number] DLP Dose#: PROCEDURE: ELECTROCARDIOGRAM STRESS TEST HISTORY: Patient is 71-year-old male with history of CAD COMPARISON: None. INDICATIONS: CAD status post PCI TECHNIQUE: Electrocardiogram stress test was performed using the protocol listed below. STRESS RESULTS: Protocol: Jared Duration: 06:00minutes Reason for termination: Fatigue Resting Heart Rate: 68 bpm. Resting Blood Pressure: 126/64 mmHg Peak Heart Rate: 127 which is 85% of maximum predicted heart rate Peak Blood Pressure: 181/71 @1:50 into recovery Workload: 7.00 METs. Symptoms with stress: Patient did not complain of any chest pain or significant shortness of breath with stress. Stress test was ended due to fatigue EKG Data EKG at Baseline: EKG at baseline showed normal sinus rhythm at 71 BPM. Normal EKG EKG with Stress: EKG with stress showed sinus tachycardia at 127 BPM. There are no ST or T- wave changes to suggest inducible ischemia CONCLUSION: 1. Patient not complain of any chest pain or significant dyspnea with stress. Stress test was ended due to fatigue 2. Patient had appropriate heart rate and blood pressure response with stress. 3. Patient was able to achieve average workload capacity. 4. Stress EKG negative for inducible ischemia Continued Report - Page 2 of 2 Patient: IMMANUEL OLIVO Phone#: : 1950 Age: 71 Gender: M Pt. Type: Out Account: [id number] Location: Ordering: DR. ISMAEL LENTZ Exam Date: 04/19/2021/7:06 Family Phys: Charge Code: [id number] Physician: [place] Order #: [id number] DLP Dose#: 5. Nuclear images will be read and reported separately. Dictated by: HANNAH JACKSON MD on 04/19/2021 at 9:34 Approved by: HANNAH JACKSON MD on 04/19/2021 at 9:41 Normal [facility] Laboratory - Hematology and Cell countson 03-20-2021 HbA1c (Bld) [Mass fraction] 6.2 % Abnormal 3.8 - 5.6 [facility]; [facility] Work Phone: Laboratory - Chemistry and C hemistry - challengeon 02-19-2021 Albumin [Mass/Vol] 3.7 g/dL Normal 3.2 - 5.0 g/dL [facility]; [facility] Work Phone: Albumin/Globulin [Mass ratio] 1.1 {ratio} Normal 0.9 - 2.4 {RATIO} [facility]; [facility] Work Phone: ALT [Catalytic activity/Vol] 45 U/L Normal 16 - 61 U/L [facility]; [facility] Work Phone: AST [Catalytic activity/Vol] 26 U/L Normal 15 - 37 U/L [facility]; [facility] Work Phone: Bilirubin [Mass/Vol] 0.60 mg/dL Normal 0.20 - 1.00 mg/dL [facility]; [facility] Work Phone: Chloride [Moles/Vol] 106 mmol/L Normal 98 - 10 7 mmol/L [facility]; [facility] Work Phone: Cholesterol [Mass/Vol] 120 mg/dL Normal [facility]; [facility] Work Phone: Cholesterol in HDL [Mass/Vol] 52 mg/dL Normal [facility]; [facility] Work Phone: Cholesterol in LDL [Mass/Vol] 53 mg/dL Normal 0 - 130 mg/dL [facility]; [facility] Work Phone: Cholesterol in VLDL [Mass/Vol] 15 mg/dL Normal 5 - 40 mg/dL [facility]; [facility] Work Phone: CO2 [Moles/Vol] 29.0 mmol/L Normal 21.0 - 32.0 mmol/L [facility]; [facility] Work Phone: Creatinine [Mass/Vol] 0.98 mg/dL Normal 0.70 - 1.30 mg/dL [facility]; [facility] Work Phone: GFR/1.73 sq M.predicted among non-blacks MDRD (S/P/Bld) [Vol rate/Area] 81 mL/min/{1.73_m2} Normal [facility]; [facility] Work Phone: Globulin (S) [Mass/Vol] 3.3 g/dL Normal 2.2 - 4.2 g/dL [facility]; [facility], [facility] Work Phone: Glucose [Mass/Vol] 126 mg/dL Abnormal 74 - 106 mg/dL [facility]; [facility], [facility] Work Phone: Magnesium [Mass/Vol] 9.1 mg/dL Normal 8.5 - 1 0.1 mg/dL [facility]; [facility] Work Phone: Potassium [Moles/Vol] 4.3 mmol/L Normal 3.5 - 5.1 mmol/L [facility]; [facility] Work Phone: Sodium [Moles/Vol] 140 mmol/L Normal 136 - 145 mmol/L [facility]; [facility] Work Phone: Triglyceride [Mass/Vol] 75 mg/dL Normal [facility]; [facility], [facility] Work Phone: Urea nitrogen [Mass/Vol] 13 mg/dL Normal 7 - 18 mg/dL [facility]. Work Phone: Laboratory - Hematology and Cell countson 08-28-2020 HbA1c (Bld) [Mass fraction] 6.4 % Abnormal 3.8 - 5.6 [facility], [employer]. Work Phone: No Panel Informationon 08-28 ALK P 99 U/L Normal 45 - 117 U/L [facility]. Work Phone: BUN/CRE 13.3 {RATIO} Normal 10 - 20 {RATIO} [facility].; [facility], [facility]. Work Phone: EST GFR - AA 97 mL/min Normal [facility]. Work Phone: GAP 5 Normal 5 - 15 [facility]. Work Phone: PSA,TOT SCREEN 0.63 ng/mL Normal 0.00 - 4.00 ng/mL [facility].; [facility], [facility]. Work Phone: T PROT 7.0 g/dL Normal 6.4 - 8.2 g/dL [facility].; [facility], [facility]. 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 [facility] Comment on above: Result Comment: Posi tive for This test was developed and its performance characteristics determined by [facility] [place]. This test has been authorized by FDA under an Emergency Use Authorization (EUA). This test has been validated in accordance with the FDA's Guidance Document Policy for Diagnostics Testing in Laboratories Certified to Perform High Complexity Testing under CLIA prior to Emergency use Authorization for Coronavirus Disease 2019 during the Public Health Emergency issued on September 07, 2019. COVID19 (SARS This test was developed and its performance characteristics determined by [facility]'s [facility] [place]. This test has been authorized by FDA under an Emergency Use Authorization (EUA). This test has been validated in accordance with the FDA's Guidance Document Policy for Diagnostics Testing in Laboratories Certified to Perform High Complexity Testing under CLIA prior to Emergency use Authorization for Coronavirus Disease 2019 during the Public Health Emergency issued on September 07, 2019. CoV2) by This test was developed and its performance characteristics determined by [facility]'s [facility] [place]. This test has been authorized by FDA under an Emergency Use Authorization (EUA). This test has been validated in accordance with the FDA's Guidance Document Policy for Diagnostics Testing in Laboratories Certified to Perform High Complexity Testing under CLIA prior to Emergency use Authorization for Coronavirus Disease 2019 during the Public Health Emergency issued on September 07, 2019. PCR.(*) This test was developed and its performance characteristics determined by [facility]'s [facility] [place]. This test has been authorized by FDA under an Emergency Use Authorization (EUA). This test has been validated in accordance with the FDA's Guidance Document Policy for Diagnostics Testing in Laboratories Certified to Perform High Complexity Testing under CLIA prior to Emergency use Authorization for Coronavirus Disease 2019 during the Public Health Emergency issued on September 07, 2019. 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. Work Phone: SARS-CoV-2 (COVID-19) RNA KRZYSZTOF+probe Ql (Unsp spec) Positive Abnormal [facility].; [facility]. Work Phone: Laboratory - Chemistry and C hemistry - challengeon 02-14-2020 Albumin [Mass/Vol] 3.8 g/dL Normal 3.2 - 5.0 g/dL [facility]; [facility] Work Phone: Albumin/Globulin [Mass ratio] 1.1 {ratio} Normal 0.9 - 2.4 {RATIO} [facility]; [facility] Work Phone: ALT [Catalytic activity/Vol] 59 U/L Normal 16 - 61 U/L [facility]; [facility] Work Phone: AST [Catalytic activity/Vol] 34 U/L Normal 15 - 37 U/L [facility]; [facility] Work Phone: Bilirubin [Mass/Vol] 0.70 mg/dL Normal 0.20 - 1.00 mg/dL [facility]; [facility] Work Phone: Calcium [Mass/Vol] 8.6 mg/dL Normal 8.5 - 10. 1 mg/dL [facility]; [facility] Work Phone: Chloride [Moles/Vol] 101 mmol/L Normal 98 - 10 7 mmol/L [facility]; [facility] Work Phone: Cholesterol [Mass/Vol] 134 mg/dL Normal [facility]; [facility] Work Phone: Cholesterol in HDL [Mass/Vol] 44 mg/dL Normal [facility]; [facility] Work Phone: Cholesterol in LDL [Mass/Vol] 59 mg/dL Normal 0 - 130 mg/dL [facility]; [facility] Work Phone: Cholesterol in VLDL [Mass/Vol] 31 mg/dL Normal 5 - 40 mg/dL [facility]; [facility] Work Phone: CO2 [Moles/Vol] 30.0 mmol/L Normal 21.0 - 32.0 mmol/L [facility]; [facility] Work Phone: Creatinine [Mass/Vol] 0.97 mg/dL Normal 0.70 - 1.30 mg/dL [facility]; [facility] Work Phone: GFR/1.73 sq M.predicted among non-blacks MDRD (S/P/Bld) [Vol rate/Area] 81 mL/min/{1.73_m2} Normal [facility]; [facility] Work Phone: Globulin (S) [Mass/Vol] 3.4 g/dL Normal 2.2 - 4.2 g/dL [facility]; [facility] Work Phone: Glucose [Mass/Vol] 123 mg/dL Abnormal 74 - 106 mg/dL [facility]; [facility] Work Phone: Potassium [Moles/Vol] 3.7 mmol/L Normal 3.5 - 5.1 mmol/L [facility]; [facility] Work Phone: Sodium [Moles/Vol] 136 mmol/L Normal 136 - 145 mmol/L [facility]; [facility] Work Phone: Triglyceride [Mass/Vol] 154 mg/dL Normal [facility]; [facility] Work Phone: Urea nitrogen [Mass/Vol] 16 mg/dL Normal 7 - 18 mg/dL [facility]; [facility] Work Phone: Laboratory - Hematology and Cell countson 02-14-2020 HbA1c (Bld) [Mass fraction] 6.4 % Abnormal 3.8 - 5.6 % [facility]; [facility] Work Phone: No Panel Informationon 02-13 ALK P 86 U/L Normal 45 - 117 U/L [facility]; [facility] Work Phone: BUN/CRE 16.5 {RATIO} Normal 10 - 20 {RATIO} [facility]; [facility] Work Phone: EST GFR - AA 98 mL/min Normal [facility]; [facility] Work Phone: GAP 5 Normal 5 - 15 [facility]; [facility] Work Phone: T PROT 7.2 g/dL Normal 6.4 - 8.2 g/dL [facility]; [facility] Work Phone: Laboratory - Chemistry and C hemistry - challengeon 04-02-2019 Albumin [Mass/Vol] 3.8 g/dL Normal 3.2 - 5.0 g/dL [facility]; [facility] Work Phone: Albumin/Globulin [Mass ratio] 1.1 {ratio} Normal 0.9 - 2.4 {RATIO} [facility]; [facility] Work Phone: ALT [Catalytic activity/Vol] 52 U/L Normal 16 - 61 U/L [facility]; [facility] Work Phone: AST [Catalytic activity/Vol] 37 U/L Normal 15 - 37 U/L [facility]; [facility] Work Phone: Bilirubin [Mass/Vol] 0.80 mg/dL Normal 0.20 - 1.00 mg/dL [facility]; [facility] Work Phone: Calcium [Mass/Vol] 8.7 mg/dL Normal 8.5 - 10. 1 mg/dL [facility]; [facility] Work Phone: Chloride [Moles/Vol] 103 mmol/L Normal 98 - 10 7 mmol/L [facility]; [facility] Work Phone: CO2 [Moles/Vol] 27.0 mmol/L Normal 21.0 - 32.0 mmol/L [facility]; [facility] Work Phone: Creatinine [Mass/Vol] 0.87 mg/dL Normal 0.70 - 1.30 mg/dL [facility]; [facility] Work Phone: GFR/1.73 sq M.predicted among non-blacks MDRD (S/P/Bld) [Vol rate/Area] 92 mL/min/{1.73_m2} Normal [facility]; [facility] Work Phone: Globulin (S) [Mass/Vol] 3.5 g/dL Normal 2.2 - 4.2 g/dL [facility]; [facility] Work Phone: Glucose [Mass/Vol] 110 mg/dL Abnormal 74 - 106 mg/dL [facility]; [facility] Work Phone: Potassium [Moles/Vol] 3.6 mmol/L Normal 3.5 - 5.1 mmol/L [facility]; [facility] Work Phone: Sodium [Moles/Vol] 139 mmol/L Normal 136 - 145 mmol/L [facility]; [facility]. Work Phone: Urea nitrogen [Mass/Vol] 12 mg/dL Normal 7 - 18 mg/dL [facility]. Work Phone: Laboratory - Hematology and Cell countson 04-02-2019 HbA1c (Bld) [Mass fraction] 6.6 % Abnormal 4.2 - 6.3 % [facility]; [facility] Work Phone: No Panel Informationon 04-02 ALK P 76 U/L Normal 45 - 117 U/L [facility]; [facility]. Work Phone: BUN/CRE 13.7 {RATIO} Normal 10 - 20 {RATIO} [facility] Center[facility]; [facility]. Work Phone: EST GFR - AA 111 mL/min Normal [facility] CenterTr[facility]; [facility] [employer] [facility]. Work Phone: GAP 9 Normal 5 - 15 [facility]; [facility], [employer]. Work Phone: T PROT 7.3 g/dL Normal 6.4 - 8.2 g/dL [facility]; [facility]. Work Phone: Laboratory - Chemistry and C hemistry - challengeon 09-15-2018 Albumin [Mass/Vol] 4.0 g/dL Normal 3.2 - 5.0 g/dL [facility]; [facility] Work Phone: Albumin/Globulin [Mass ratio] 1.2 {ratio} Normal 0.9 - 2.4 {RATIO} [facility]; [facility] Work Phone: ALT [Catalytic activity/Vol] 55 U/L Normal 16 - 61 U/L [facility]; [facility] Work Phone: AST [Catalytic activity/Vol] 30 U/L Normal 15 - 37 U/L [facility]; [facility] Work Phone: Bilirubin [Mass/Vol] 0.80 mg/dL Normal 0.20 - 1.00 mg/dL [facility]; [facility] Work Phone: Calcium [Mass/Vol] 8.7 mg/dL Normal 8.5 - 10. 1 mg/dL [facility]; [facility]. Work Phone: Chloride [Moles/Vol] 106 mmol/L Normal 98 - 10 7 mmol/L [facility]; [facility]. Work Phone: Cholesterol [Mass/Vol] 115 mg/dL Normal [facility]; [facility] Work Phone: Cholesterol in HDL [Mass/Vol] 50 mg/dL Normal [facility]; [facility] Work Phone: Cholesterol in LDL [Mass/Vol] 48 mg/dL Normal 0 - 130 mg/dL [facility]; [facility] Work Phone: Cholesterol in VLDL [Mass/Vol] 17 mg/dL Normal 5 - 40 mg/dL [facility]; [facility] Work Phone: CO2 [Moles/Vol] 26.0 mmol/L Normal 21.0 - 32.0 mmol/L [facility]; [facility] Work Phone: Creatinine [Mass/Vol] 0.96 mg/dL Normal 0.70 - 1.30 mg/dL [facility]; [facility] Work Phone: GFR/1.73 sq M.predicted among non-blacks MDRD (S/P/Bld) [Vol rate/Area] 82 mL/min/{1.73_m2} Normal [facility]; [facility] Work Phone: Globulin (S) [Mass/Vol] 3.4 g/dL Normal 2.2 - 4.2 g/dL [facility]; [facility] Work Phone: Glucose [Mass/Vol] 123 mg/dL Abnormal 74 - 106 mg/dL [facility]; [facility] Work Phone: Potassium [Moles/Vol] 4.2 mmol/L Normal 3.5 - 5.1 mmol/L [facility]; [facility] Work Phone: Sodium [Moles/Vol] 138 mmol/L Normal 136 - 145 mmol/L [facility]; [facility] Work Phone: Triglyceride [Mass/Vol] 85 mg/dL Normal [facility]; [facility] Work Phone: Urea nitrogen [Mass/Vol] 13 mg/dL Normal 7 - 18 mg/dL [facility]; [facility] Work Phone: Laboratory - Hematology and Cell countson 09-15-2018 HbA1c (Bld) [Mass fraction] 6.2 % Normal 4.2 - 6.3 % [facility].; [facility] Work Phone: No Panel Informationon 09-15 ALK P 80 U/L Normal 45 - 117 U/L [facility]Tr[facility]; [facility]. Work Phone: BUN/CRE 13.5 {RATIO} Normal 10 - 20 {RATIO} [facility] CenterTr[facility].; [facility]. Work Phone: EST GFR - AA 100 mL/min Normal [facility]Tr[facility]; [facility]. Work Phone: GAP 6 Normal 5 - 15 [facility]Tr[facility]; [facility]. Work Phone: T PROT 7.4 g/dL Normal 6.4 - 8.2 g/dL [facility]Tr[facility]; [facility]. Work Phone: Laboratory - Chemistry and C hemistry - challengeon 03-01-2018 Albumin [Mass/Vol] 3.9 g/dL Normal 3.2 - 5.0 g/dL [facility]; [facility] Work Phone: Albumin/Globulin [Mass ratio] 1.1 {ratio} Normal 0.9 - 2.4 {RATIO} [facility]Tr[facility].; [facility]. Work Phone: ALT [Catalytic activity/Vol] 49 U/L Normal 16 - 61 U/L [facility]Tr[facility]; [facility] Work Phone: AST [Catalytic activity/Vol] 30 U/L Normal 15 - 37 U/L [facility]; [facility] Work Phone: Bilirubin [Mass/Vol] 0.80 mg/dL Normal 0.20 - 1.00 mg/dL [facility]; [facility]. Work Phone: Calcium [Mass/Vol] 8.7 mg/dL Normal 8.5 - 10. 1 mg/dL [facility], [facility]. Work Phone: Chloride [Moles/Vol] 105 mmol/L Normal 98 - 10 7 mmol/L [facility]; [facility]. Work Phone: Cholesterol [Mass/Vol] 118 mg/dL Normal [facility]; [facility] Work Phone: Cholesterol in HDL [Mass/Vol] 48 mg/dL Normal [facility]; [facility]. Work Phone: Cholesterol in LDL [Mass/Vol] 44 mg/dL Normal 0 - 130 mg/dL [facility], [facility]. Work Phone: Cholesterol in VLDL [Mass/Vol] 26 mg/dL Normal 5 - 40 mg/dL [facility], [facility]. Work Phone: CO2 [Moles/Vol] 28.0 mmol/L Normal 21.0 - 32.0 mmol/L [facility].; [facility]. Work Phone: Creatinine [Mass/Vol] 1.04 mg/dL Normal 0.70 - 1.30 mg/dL [facility]; [facility], [facility]. Work Phone: GFR/1.73 sq M.predicted among non-blacks MDRD (S/P/Bld) [Vol rate/Area] 76 mL/min/{1.73_m2} Normal [facility]; [facility] Work Phone: Globulin (S) [Mass/Vol] 3.5 g/dL Normal 2.2 - 4.2 g/dL [facility]; [facility] Work Phone: Glucose [Mass/Vol] 119 mg/dL Abnormal 74 - 106 mg/dL [facility]; [facility] Work Phone: Potassium [Moles/Vol] 4.0 mmol/L Normal 3.5 - 5.1 mmol/L [facility]; [facility] Work Phone: Sodium [Moles/Vol] 140 mmol/L Normal 136 - 145 mmol/L [facility]; [facility] Work Phone: Triglyceride [Mass/Vol] 131 mg/dL Normal [facility]; [facility] Work Phone: Urea nitrogen [Mass/Vol] 12 mg/dL Normal 7 - 18 mg/dL [facility]; [facility] Work Phone: Laboratory - Hematology and Cell countson 03-01-2018 HbA1c (Bld) [Mass fraction] 6.1 % Normal 4.2 - 6.3 % [facility]; [facility] Work Phone: No Panel Informationon 03-01 ALK P 74 U/L Normal 45 - 117 U/L [facility]; [facility] Work Phone: BUN/CRE 11.5 {RATIO} Normal 10 - 20 {RATIO} [facility]; [facility] Work Phone: EST GFR - AA 91 mL/min Normal [facility]; [facility] Work Phone: GAP 7 Normal 5 - 15 [facility]; [facility] Work Phone: T PROT 7.4 g/dL Normal 6.4 - 8.2 g/dL [facility]; [facility] Work Phone: Laboratory - Chemistry and C hemistry - challengeon 10-18-2017 Albumin [Mass/Vol] 3.9 g/dL Normal 3.2 - 5.0 g/dL [facility]; [facility] Work Phone: Albumin/Globulin [Mass ratio] 1.1 {ratio} Normal 0.9 - 2.4 {RATIO} [facility]; [facility] Work Phone: ALT [Catalytic activity/Vol] 71 U/L Abnormal 16 - 61 U/L [facility]; [facility] Work Phone: AST [Catalytic activity/Vol] 38 U/L Abnormal 15 - 37 U/L [facility]; [facility] Work Phone: Bilirubin [Mass/Vol] 0.60 mg/dL Normal 0.20 - 1.00 mg/dL [facility]; [facility] Work Phone: Calcium [Mass/Vol] 9.0 mg/dL Normal 8.5 - 10. 1 mg/dL [facility]; [facility] Work Phone: Chloride [Moles/Vol] 104 mmol/L Normal 98 - 10 7 mmol/L [facility]; [facility] Work Phone: Cholesterol [Mass/Vol] 128 mg/dL Normal [facility]; [facility] Work Phone: Cholesterol in HDL [Mass/Vol] 50 mg/dL Normal [facility]; [facility] Work Phone: Cholesterol in LDL [Mass/Vol] 58 mg/dL Normal 0 - 130 mg/dL [facility]; [facility] Work Phone: Cholesterol in VLDL [Mass/Vol] 20 mg/dL Normal 5 - 40 mg/dL [facility]; [facility] Work Phone: CO2 [Moles/Vol] 30.0 mmol/L Normal 21.0 - 32.0 mmol/L [facility]; [facility] Work Phone: Creatinine [Mass/Vol] 0.98 mg/dL Normal 0.70 - 1.30 mg/dL [facility]; [facility] Work Phone: GFR/1.73 sq M.predicted among non-blacks MDRD (S/P/Bld) [Vol rate/Area] 81 mL/min/{1.73_m2} Normal [facility]; [facility], [facility] Work Phone: Globulin (S) [Mass/Vol] 3.5 g/dL Normal 2.2 - 4.2 g/dL [facility]; [facility], [facility] Work Phone: Glucose [Mass/Vol] 118 mg/dL Abnormal 74 - 106 mg/dL [facility]; [facility], [facility] Work Phone: Potassium [Moles/Vol] 3.9 mmol/L Normal 3.5 - 5.1 mmol/L [facility]; [facility] Work Phone: Sodium [Moles/Vol] 140 mmol/L Normal 136 - 145 mmol/L [facility]; [facility] Work Phone: Triglyceride [Mass/Vol] 99 mg/dL Normal [facility]; [facility] Work Phone: Urea nitrogen [Mass/Vol] 16 mg/dL Normal 7 - 18 mg/dL [facility]; [facility] Work Phone: Laboratory - Hematology and Cell countson 10-18-2017 Basophils/100 WBC (Bld) 0.2 % Normal 0 - 1 % [facility]; [facility] Work Phone: Eosinophils/100 WBC (Bld) 3.4 % Normal 0 - 5 % [facility]; [facility] Work Phone: Erythrocyte distribution width (RBC) [Ratio] 14.3 % Normal 11.6 - 14.6 % [facility]; [facility] Work Phone: HbA1c (Bld) [Mass fraction] 6.4 % Abnormal 4.2 - 6.3 % [facility]; [facility] Work Phone: Hematocrit (Bld) [Volume fraction] 46.4 % Normal 40 - 54 % [facility]; [facility] Work Phone: Hemoglobin (Bld) [Mass/Vol] 15.4 g/dL Normal 13.0 - 16.5 g/dL [facility]; [facility] Work Phone: Lymphocytes/100 WBC (Bld) 32.7 % Normal 19 - 41 % [facility]; [facility]. Work Phone: MCH (RBC) [Entitic mass] 30.0 pg Normal 27.0 - 32.0 pg [facility]Tr[facility]; [facility]. Work Phone: MCV (RBC) [Entitic vol] 90.3 fL Normal 80 - 94 fL [facility]Tr[facility]; [facility]. Work Phone: Monocytes/100 WBC (Bld) 10.8 % Abnormal 0 - 10 % [facility]; [facility]. Work Phone: Neutrophils/100 WBC (Bld) 52.7 % Normal 47 - 70 % [facility]; [facility]. Work Phone: Platelet mean volume (Bld) [Entitic vol] 10.0 fL Normal 6.2 - 12.0 fL [facility] CenterJu[facility]; [facility]. Work Phone: Platelets (Bld) [#/Vol] 198 10*3/uL Normal 150 - 450 K/mm3 [facility]; [facility]. Work Phone: RBC (Bld) [#/Vol] 5.14 10*6/uL Normal 4.6 - 6.2 {M/mm3} [facility]; [facility]. Work Phone: WBC (Bld) [#/Vol] 6.1 10*3/uL Normal 4.4 - 11.0 K/mm3 [facility] Center[facility]; [facility]. Work Phone: No Panel Informationon 10-18 Absolute Lymph 1.99 {X10_3/ul} Normal 0.83 - 4.5 1 {X10_3/ul} [facility].; [facility]. Work Phone: Absolute Neut 3.2 {X10_3/uL} Normal 2.0 - 7.7 {X10_3/uL} [facility], [facility]. Work Phone: ALK P 87 U/L Normal 45 - 117 U/L [facility]. Work Phone: BUN/CRE 16.3 {RATIO} Normal 10 - 20 {RATIO} [facility].; [facility], [facility]. Work Phone: EST GFR - AA 98 mL/min Normal [facility]. Work Phone: GAP 6 Normal 5 - 15 [facility], [facility]. Work Phone: IM GRAN % 0.200 % Normal 0.0 - 0.9 % [facility].; [facility], [facility]. Work Phone: MCHC 33.2 {g/gl} Normal 32 - 36 {g/gl} [facility].; [facility], [facility]. Work Phone: RDW SD 47.5 fL Abnormal 35.1 - 43.9 fL [facility].; [facility]. Work Phone: T PROT 7.4 g/dL Normal 6.4 - 8.2 g/dL [facility].; [facility], [facility]. Work Phone: Laboratory - Chemistry and C hemistry - challengeon 01-23-2017 Albumin [Mass/Vol] 4.1 g/dL Normal 3.4 - 5.0 g/dL [facility]; [facility] Work Phone: ALT [Catalytic activity/Vol] 31 U/L Normal 12 - 78 U/L [facility]; [facility] Work Phone: AST [Catalytic activity/Vol] 19 U/L Normal 15 - 37 U/L [facility]; [facility] Work Phone: Bilirubin [Mass/Vol] 0.70 mg/dL Normal 0.20 - 1.00 mg/dL [facility]; [facility] Work Phone: Bilirubin.direct [Mass/Vol] 0.13 mg/dL Normal 0.00 - 0.30 mg/dL [facility]; [facility] Work Phone: Calcium [Mass/Vol] 9.2 mg/dL Normal 8.5 - 10. 1 mg/dL [facility] [facility]; [facility] Work Phone: Chloride [Moles/Vol] 105 mmol/L Normal 98 - 10 7 mmol/L [facility]; [facility] Work Phone: Cholesterol [Mass/Vol] 160 mg/dL Normal [facility]; [facility] Work Phone: Cholesterol in HDL [Mass/Vol] 59 mg/dL Normal [facility]; [facility] Work Phone: Cholesterol in LDL [Mass/Vol] 75 mg/dL Normal 0 - 130 mg/dL [facility]; [facility] Work Phone: Cholesterol in VLDL [Mass/Vol] 26 mg/dL Normal 5 - 40 mg/dL [facility]; [facility] Work Phone: CO2 [Moles/Vol] 29.0 mmol/L Normal 21.0 - 32.0 mmol/L [facility]; [facility] Work Phone: Creatinine [Mass/Vol] 0.93 mg/dL Normal 0.70 - 1.30 mg/dL [facility]; [facility] Work Phone: GFR/1.73 sq M.predicted among non-blacks MDRD (S/P/Bld) [Vol rate/Area] 86 mL/min/{1.73_m2} Normal [facility]; [facility] Work Phone: Globulin (S) [Mass/Vol] 3.6 g/dL Abnormal 2.3 - 3.5 g/dL [facility]; [facility] Work Phone: Glucose [Mass/Vol] 116 mg/dL Abnormal 70 - 110 mg/dL [facility]; [facility] Work Phone: Potassium [Moles/Vol] 4.0 mmol/L Normal 3.5 - 5.1 mmol/L [facility]; [facility] Work Phone: Sodium [Moles/Vol] 139 mmol/L Normal 136 - 145 mmol/L [facility]; [facility] Work Phone: Triglyceride [Mass/Vol] 129 mg/dL Normal [facility]; [facility] Work Phone: Urea nitrogen [Mass/Vol] 15 mg/dL Normal 7 - 18 mg/dL [facility]; [facility] Work Phone: Laboratory - Hematology and Cell countson 01-23-2017 HbA1c (Bld) [Mass fraction] 6.4 % Abnormal 4.2 - 6.3 % [facility]; [facility] Work Phone: No Panel Informationon 01-23 ALK P 64 U/L Normal 45 - 117 U/L [facility] Center[facility]; [facility] Work Phone: BUN/CRE 16.1 {RATIO} Normal 10 - 20 {RATIO} [facility]; [facility] Work Phone: EST GFR - AA 104 mL/min Normal [facility]; [facility] [employer] [facility]. Work Phone: GAP 5 Normal 5 - 15 [facility]; [facility]. Work Phone: T PROT 7.7 g/dL Normal 6.4 - 8.2 g/dL [facility]; [facility]. Work Phone: Laboratory - Chemistry and C hemistry - challengeon 06-20-2016 Calcium [Mass/Vol] 9.2 mg/dL Normal 8.4 - 10. 1 mg/dL [facility]; [facility], [facility]. Chloride [Moles/Vol] 106 mmol/L Normal 98 - 110 meq/L [facility]; [facility] [employer] [facility], [employer]. CO2 [Moles/Vol] 29 mmol/L Normal 22 - 32 meq/L [facility].; [facility], [facility]. Creatinine [Mass/Vol] 0.88 mg/dL Normal 0.60 - 1.40 mg/dL [facility].; [facility], [facility]. GFR/1.73 sq M.predicted among blacks MDRD (S/P/Bld) [Vol rate/Area] mL/min/{1.73_m2} Normal [facility].; [facility], [facility] Work Phone: GFR/1.73 sq M.predicted among non-blacks MDRD (S/P/Bld) [Vol rate/Area] mL/min/{1.73_m2} Normal [facility].; [facility], [facility] Work Phone: Glucose [Mass/Vol] 95 mg/dL Normal 82 - 115 mg/dL [facility]; [facility], [facility] Potassium [Moles/Vol] 4.4 mmol/L Normal 3.5 - 5.0 meq/L [facility]; [facility], [facility] Sodium [Moles/Vol] 144 mmol/L Normal 136 - 145 meq/L [facility].; [facility], [facility] Urea nitrogen [Mass/Vol] 13.0 mg/dL Normal 8.0 - 22.0 mg/dL [facility], [facility] Urea nitrogen/Creatinine [Mass ratio] 14.8 mg/mg Normal 10.0 - 22.0 [facility].; [facility], [facility] Laboratory - Hematology and Cell countson 06-20-2016 HbA1c (Bld) [Mass fraction] 6.3 % Abnormal 4.0 - 6.0 % [facility]; [facility], [facility] No Panel Informationon 06-20 Electrolyte Balance 9.0 meq/L Normal 4.0 - 15 .0 meq/L [facility]; [facility], [facility] Vital Signs Date Time Vital Sign Value Performing Clinician Mahendra hurt 03-21-2024 15:36-0400 Body height 170.81 cm Magda Crespo RN [facility].; [facility], [facility] 03-21-2024 15:36-0400 Body mass index (BMI) [Ratio] 30.94 kg/m2 Magda Crespo RN [facility], Inc.; [facility], Inc[facility] 03-21-2024 15:36-0400 Body surface area Derived from formula 2.02 m2 Magda Crespo RN [facility], [facility].; [facility], Inc[facility] 03-21-2024 15:36-0400 Body weight 90.27 kg Magda Crespo RN [facility], [facility].; [facility], Inc[facility] 03-21-2024 15:36-0400 Diastolic blood pressure 84 mm[Hg] Magda Crespo RN [facility], [facility].; [facility], Inc[facility] Comment on above: Patient Position: Sitting; Cuff Location : Left Arm; Cuff Size: Large 03-21-2024 15:36-0400 Heart rate 69 /min Magda Crespo RN [facility], [facility].; [facility], Inc. Comment on above: Pattern: Regular 03-21-2024 15:36-0400 Systolic blood pressure 134 mm[Hg] Magda Crespo RN [facility], [facility].; [facility], Inc[facility] Comment on above: Patient Position: Sitting; Cuff Location : Left Arm; Cuff Size: Large 02-28-2023 10:49-0400 Body height 170.81 cm Magda Crespo RN [facility], [facility].; [facility], Inc[facility] 02-28-2023 10:49-0400 Body mass index (BMI) [Ratio] 30.38 kg/m2 Magda Crespo RN [facility], [facility].; [facility], Inc[facility] 02-28-2023 10:49-0400 Body surface area Derived from formula 2.01 m2 Magda Crespo RN [facility], [facility].; [facility], Inc. 02-28-2023 10:49-0400 Body weight 88.63 kg Magda Crespo RN [facility], [facility].; [facility], Inc. 02-28-2023 10:49-0400 Diastolic blood pressure 82 mm[Hg] Magda Crespo RN [facility].; [facility]. Comment on above: Patient Position: Sitting; Cuff Location : Left Arm; Cuff Size: Large 02-28-2023 10:49-0400 Heart rate 67 /min Magda Crespo RN [facility].; [facility] [employer] [facility], [employer]. Comment on above: Pattern: Regular 02-28-2023 10:49-0400 Systolic blood pressure 133 mm[Hg] Magda Crespo RN [facility].; [facility]. Comment on above: Patient Position: Sitting; Cuff Location : Left Arm; Cuff Size: Large 06-17-2022 13:15-0500 Body height 170.81 cm SHIMA BLANKENSHIP MD Work Phone: [facility].; [facility] [employer] [facility]. 06-17-2022 13:15-0500 Body mass index (BMI) [Ratio] 30 kg/m2 SHIMA BLANKENSHIP MD Work Phone: [facility] [employer] [facility].; [facility] 06-17-2022 13:15-0500 Body surface area Derived from formula 2 m2 SHIMA BLANKENSHIP MD Work Phone: [facility] [employer] [facility].; [email or web address] [facility] [employer] [facility]. 06-17-2022 13:15-0500 Body temperature 99.2 [degF] SHIMA BLANKENSHIP MD Work Phone: [facility] [employer] [facility].; [facility] [employer] [facility]. Comment on above: Method: Oral 06-17-2022 13:15-0500 Body weight 87.54 kg SHIMA BLANKENSHIP MD Work Phone: [facility] [employer] [facility].; [email or web address] [facility] [employer] [facility]. 06-17-2022 13:15-0500 Diastolic blood pressure 81 mm[Hg] SHIMA BLANKENSHIP MD Work Phone: [facility] [employer] [facility].; [email or web address] [facility] [employer] [facility]. Comment on above: Patient Position: Sitting; Cuff Location : Left Arm; Cuff Size: Standard 06-17-2022 13:15-0500 Heart rate 89 /min SHIMA BLANKENSHIP MD Work Phone: [facility] CenterJu[facility]a [facility] Holdings; [facility] [employer] [facility]. Comment on above: Pattern: Regular 06-17-2022 13:15-0500 Inhaled oxygen concentration 21 % SHIMA BLANKENSHIP MD Work Phone: [facility].; [facility] [employer] [facility]. Comment on above: Room air 06-17-2022 13:15-0500 SaO2% (BldA) [Mass fraction] 96 % SHIMA BLANKENSHIP MD Work Phone: [facility].; [email or web address] [facility] [employer] [facility]. 06-17-2022 13:15-0500 Systolic blood pressure 131 mm[Hg] SHIMA BLANKENSHIP MD Work Phone: [facility] Center[facility]; [facility] [employer] [facility]. Comment on above: Patient Position: Sitting; Cuff Location : Left Arm; Cuff Size: Standard 01-17-2022 15:16-0400 Body height 170.81 cm JAMES MILIAN RN [facility] [employer] [facility].; [facility] 01-17-2022 15:16-0400 Body mass index (BMI) [Ratio] 29.23 kg/m2 JAMES MILIAN RN [facility] [employer] [facility].; [facility]. 01-17-2022 15:16-0400 Body surface area Derived from formula 1.98 m2 JAMES GRATE CODY [facility] [employer] [facility].; [facility], [employer]. 01-17-2022 15:16-0400 Body weight 85.28 kg JAMES GRATE CODY [facility] [employer] [facility].; [facility] [employer] [facility], [employer]. 01-17-2022 15:16-0400 Diastolic blood pressure 80 mm[Hg] JAMES MILIAN RN [facility] [employer] [facility].; [facility] [employer] [facility]. Comment on above: Patient Position: Sitting; Cuff Location : Left Arm; Cuff Size: Standard 01-17-2022 15:16-0400 Heart rate 60 /min JAMES MILIAN RN [facility], [facility].; [facility], Inc[employer] Comment on above: Pattern: Regular 01-17-2022 15:16-0400 Systolic blood pressure 119 mm[Hg] JAMES MILIAN RN [facility], Inc.; [facility], Inc. Comment on above: Patient Position: Sitting; Cuff Location : Left Arm; Cuff Size: Standard 02-11-2021 13:04-0400 Body height 170.81 cm [facility], [facility].; [facility], [facility]. 02-11-2021 13:04-0400 Body mass index (BMI) [Ratio] 30.38 kg/m2 [facility], [facility].; [facility], [facility]. 02-11-2021 13:04-0400 Body surface area Derived from formula 2.01 m2 [facility], [facility].; [facility], [facility]. 02-11-2021 13:04-0400 Body weight 88.63 kg [facility], [facility].; [facility], Inc[employer] 02-11-2021 13:04-0400 Diastolic blood pressure 74 mm[Hg] [facility], [facility].; [facility], Inc. Comment on above: Patient Position: Sitting; Cuff Location : Left Arm; Cuff Size: Standard 02-11-2021 13:04-0400 Heart rate 84 /min [facility], Inc.; [facility], Inc. Comment on above: Pattern: Regular 02-11-2021 13:04-0400 Systolic blood pressure 128 mm[Hg] [facility], [facility].; [facility], Inc. Comment on above: Patient Position: Sitting; Cuff Location : Left Arm; Cuff Size: Standard 08-27-2020 13:01-0500 Body height 170.81 cm Magda Crespo RN [facility], [facility].; [facility], [facility]. 08-27-2020 13:01-0500 Body mass index (BMI) [Ratio] 30.31 kg/m2 Magda Crespo RN [facility], [facility].; [facility], Inc[employer] 08-27-2020 13:01-0500 Body surface area Derived from formula 2.01 m2 Magda Crespo RN [facility], [facility].; [facility], [facility]. 08-27-2020 13:01-0500 Body weight 88.45 kg Magda Crespo RN [facility], [facility].; [facility]. 08-27-2020 13:01-0500 Diastolic blood pressure 77 mm[Hg] Magda Crespo RN [facility], [facility]. Comment on above: Patient Position: Sitting; Cuff Location : Left Arm; Cuff Size: Large 08-27-2020 13:01-0500 Heart rate 79 /min Magda Crespo RN [facility].; [facility], [facility]. Comment on above: Pattern: Regular 08-27-2020 13:01-0500 Systolic blood pressure 117 mm[Hg] Magda Crespo RN [facility].; [facility], [facility]. Comment on above: Patient Position: Sitting; Cuff Location : Left Arm; Cuff Size: Large 02-17-2020 13:03-0400 Body height 170.81 cm SHIMA BLANKENSHIP MD Work Phone: [facility].; [facility], [facility]. 02-17-2020 13:03-0400 Body mass index (BMI) [Ratio] 30.78 kg/m2 SHIMA BLANKENSHIP MD Work Phone: [facility].; [facility], [facility]. 02-17-2020 13:03-0400 Body surface area Derived from formula 2.02 m2 SHIMA BLANKENSHIP MD Work Phone: [employer] 02-17-2020 13:03-0400 Body weight 89.81 kg SHIMA BLANKENSHIP MD Work Phone: [employer] 02-17-2020 13:03-0400 Diastolic blood pressure 80 mm[Hg] SHIMA BLANKENSHIP MD Work Phone: [employer].; [employer]. Comment on above: Patient Position: Sitting; Cuff Location : Left Arm; Cuff Size: Large 02-17-2020 13:03-0400 Heart rate 76 /min SHIMA BLANKENSHIP MD Work Phone: [employer]. Comment on above: Pattern: Regular 02-17-2020 13:03-0400 Systolic blood pressure 130 mm[Hg] SHIMA BLANKENSHIP MD Work Phone: [employer]. Comment on above: Patient Position: Sitting; Cuff Location : Left Arm; Cuff Size: Large 02-18-2019 10:01-0400 Body height 170.81 cm Nubia Jay RN [facility] [employer] [facility] [employer] 02-18-2019 10:01-0400 Body mass index (BMI) [Ratio] 29.85 kg/m2 Nubia Jay RN [facility] [email or web address] [facility] [employer] 02-18-2019 10:01-0400 Body surface area Derived from formula 1.99 m2 Nubia Jay RN [facility] [email or web address] [facility] [employer] 02-18-2019 10:01-0400 Body weight 87.09 kg Nubia Jay RN [facility] [email or web address] 02-18-2019 10:01-0400 Diastolic blood pressure 74 mm[Hg] Nubia Jay RN [facility] [employer] [facility] [employer] [facility], [employer] Comment on above: Patient Position: Sitting; Cuff Location : Left Arm; Cuff Size: Large 02-18-2019 10:01-0400 Heart rate 66 /min Nubia Jay RN [facility] [employer] [facility], Inc.; [employer] [facility] [employer], [employer] Comment on above: Pattern: Regular 02-18-2019 10:01-0400 Systolic blood pressure 128 mm[Hg] Nubia Jay RN [facility] [employer] [facility] Inc.; [employer] [facility] [employer] Comment on above: Patient Position: Sitting; Cuff Location : Left Arm; Cuff Size: Large 08-20-2018 09:37-0500 Body height 170.81 cm Nubia Jay RN [facility] [employer] [facility], [email or web address] [facility] [employer] [facility], [employer] 08-20-2018 09:37-0500 Body mass index (BMI) [Ratio] 30.16 kg/m2 Nubia Jay RN [facility] [employer] [facility]Tr[facility] Inc.; [email or web address] [facility] [employer] [facility], Inc[employer] 08-20-2018 09:37-0500 Body surface area Derived from formula 2 m2 Nubia Jay RN [facility] [employer] [facility].; [email or web address] [facility] [employer] [facility], Inc[employer] 08-20-2018 09:37-0500 Body weight 88 kg Nubia Jay RN [facility] [employer] [facility], Inc.; [email or web address] [facility] [employer] [facility], Inc[employer] 08-20-2018 09:37-0500 Diastolic blood pressure 80 mm[Hg] Nubia Jay RN [facility] [employer] [facility]Tr[facility] Inc.; [employer] [facility] [employer] Comment on above: Patient Position: Sitting; Cuff Location : Left Arm; Cuff Size: Large 08-20-2018 09:37-0500 Heart rate 80 /min Nubia Jay RN [facility] [employer] [facility] [employer] Comment on above: Pattern: Regular 08-20-2018 09:37-0500 Systolic blood pressure 121 mm[Hg] Nubia Jay RN [facility] Inc.; [employer] [facility] [employer] Comment on above: Patient Position: Sitting; Cuff Location : Left Arm; Cuff Size: Large 02-19-2018 09:59-0400 Body height 170.81 cm Magda Crespo RN [facility] [employer] [facility], Inc.; [email or web address] [facility] [employer] [facility], Inc[employer] 02-19-2018 09:59-0400 Body mass index (BMI) [Ratio] 29.69 kg/m2 Magda Crespo RN [facility] [employer] [facility], Inc.; [email or web address] [facility] [employer] [facility], Inc[employer] 02-19-2018 09:59-0400 Body surface area Derived from formula 1.99 m2 Magda Crespo RN [facility] [employer] [facility], Inc.; [email or web address] [facility] [employer] [facility], Inc[employer] 02-19-2018 09:59-0400 Body weight 86.64 kg Magda Crespo RN [facility] [employer] [facility], Inc.; [email or web address] [facility] [employer] [facility], Inc. 02-19-2018 09:59-0400 Diastolic blood pressure 79 mm[Hg] Magda Crespo RN [facility] [employer] [facility], Inc.; [email or web address] [facility] [employer] Comment on above: Patient Position: Sitting; Cuff Location : Left Arm; Cuff Size: Large 02-19-2018 09:59-0400 Heart rate 85 /min Magda Crespo RN [facility] [employer] [facility], Inc.; [employer] [facility] [employer] Comment on above: Pattern: Regular 02-19-2018 09:59-0400 Systolic blood pressure 125 mm[Hg] Magda Crespo RN [facility] [employer] [facility], Inc.; [email or web address] [facility] [employer] [facility], Inc. Comment on above: Patient Position: Sitting; Cuff Location : Left Arm; Cuff Size: Large 09-21-2017 11:05-0400 Body height 170.81 cm Magda Crespo RN [facility] [employer] [facility], Inc.; [email or web address] [facility] [employer] [facility], Inc[employer] 09-21-2017 11:05-0400 Body mass index (BMI) [Ratio] 29.04 kg/m2 Magda Crespo RN [facility] [employer] [facility], Inc.; [email or web address] [facility] [employer] [facility], Inc[employer] 09-21-2017 11:05-0400 Body surface area Derived from formula 1.97 m2 Magda Crespo RN [facility] [employer] [facility], Inc.; [email or web address] [facility] [employer] [facility], Inc. 09-21-2017 11:05-0400 Body weight 84.73 kg Magda Crespo RN [facility] [employer] [facility], Inc.; [email or web address] [facility] [employer] [facility], Inc[employer] 09-21-2017 11:05-0400 Diastolic blood pressure 77 mm[Hg] Magda Crespo RN [facility], Inc.; [email or web address] [facility] [employer] [facility], Inc. Comment on above: Patient Position: Sitting; Cuff Location : Left Arm; Cuff Size: Large 09-21-2017 11:[id number] Heart rate 71 /min Magda Crespo RN [facility] [employer] [facility], Inc.; [email or web address] [facility] [employer] Comment on above: Pattern: Regular 09-21-2017 11:05-0400 Systolic blood pressure 113 mm[Hg] Magda Crespo RN [facility] [employer] [facility], Inc.; [email or web address] [facility] [employer] [facility], Inc[employer] Comment on above: Patient Position: Sitting; Cuff Location : Left Arm; Cuff Size: Large 02-20-2017 10:[id number] Body height 170.81 cm Nubia Jay RN [facility] [employer] [facility], Inc.; [email or web address] [facility] [employer] [facility], Inc[employer] 02-20-2017 10:08-0400 Body mass index (BMI) [Ratio] 28.42 kg/m2 Nubia Jay RN [facility] [employer] [facility], Inc.; [email or web address] [facility] [employer] [facility], Inc[employer] 02-20-2017 10:08-0400 Body surface area Derived from formula 1.95 m2 Nubia Jay RN [facility] [employer] [facility], Inc.; [email or web address] [facility] [employer] [facility], Inc. 02-20-2017 10:[id number] Body weight 82.92 kg Nubia Jay RN [facility] [employer] [facility], Inc.; [email or web address] [facility] [employer] [facility], Inc. 02-20-2017 10:080400 Diastolic blood pressure 80 mm[Hg] Nubia Jay RN [facility] [employer] [facility], Inc.; [email or web address] [facility] [employer] [facility], [employer] Comment on above: Patient Position: Sitting; Cuff Location : Left Arm; Cuff Size: Large 02-20-2017 10:[id number] Heart rate 63 /min Nubia Jay RN [facility] [facility].; [employer] [facility] Grid20/20, Inc. Comment on above: Pattern: Regular 02-20-2017 10:08-0400 Systolic blood pressure 128 mm[Hg] Nubia Jay RN [facility] [employer] [facility], Inc.; [email or web address] [facility] [employer] [facility], Inc. Comment on above: Patient Position: Sitting; Cuff Location : Left Arm; Cuff Size: Large 09-19-2016 13:09-0400 Body height 170.81 cm Nubia Jay RN [facility] [employer] [facility], Inc.; [employer] [facility] [employer] [facility], Inc. 09-19-2016 13:09-0400 Body mass index (BMI) [Ratio] 29.38 kg/m2 Nubia Jay RN [facility] [employer] [facility], Inc.; [employer] [facility] [employer] [facility], Inc. 09-19-2016 13:09-0400 Body surface area Derived from formula 1.98 m2 Nubia Jay RN [facility] [employer] [facility], Inc.; [employer] [facility] [employer] [facility], Inc. 09-19-2016 13:09-0400 Body weight 85.73 kg Nubia Jay RN [facility] [employer] [facility], Inc.; [employer] [facility] [employer] [facility], Inc. 09-19-2016 13:09-0400 Diastolic blood pressure 82 mm[Hg] Nubia Jay RN [facility] [employer] [facility], Inc.; [employer] [facility] [employer] [facility], Inc. Comment on above: Patient Position: Sitting; Cuff Location : Left Arm; Cuff Size: Large 09-19-2016 13:09-0400 Heart rate 76 /min Nubia Jay RN [facility] [employer] [facility], Inc.; [email or web address] [facility] [employer] [facility], Inc. Comment on above: Pattern: Regular 09-19-2016 13:09-0400 Systolic blood pressure 124 mm[Hg] Nubia [facility] RN [facility].; [employer] [facility] [employer] [facility], Inc. Comment on above: Patient Position: Sitting; Cuff Location : Left Arm; Cuff Size: Large 06-20-2016 09:19-0500 Body height 170.81 cm Nubia Jay RN [facility] [employer] [facility], Inc.; [email or web address] [facility] [employer]20[employer], Inc. 06-20-2016 09:19-0500 Body mass index (BMI) [Ratio] 31.25 kg/m2 Nubia Jay RN [place] [employer] [facility].; [employer] [facility] [employer] [facility], Inc. 06-20-2016 09:19-0500 Body surface area Derived from formula 2.03 m2 Nubia Jay RN [facility] [employer] [facility].; [employer] [facility] [employer] [facility], Inc. 06-20-2016 09:19-0500 Body weight 91.17 kg Nubia Jay RN [facility] [employer] [facility].; [facility] [employer] [facility], Inc. 06-20-2016 09:19-0500 Diastolic blood pressure 83 mm[Hg] Nubia Jay RN [facility] [employer] [facility].; [employer] [facility] [employer], Inc. Comment on above: Patient Position: Sitting; Cuff Location : Left Arm; Cuff Size: Large 06-20-2016 09:19-0500 Heart rate 68 /min Nubia Jay RN [facility] [employer] [facility].; [employer] [facility] [employer], [employer]. Comment on above: Pattern: Regular 06-20-2016 09:19-0500 Systolic blood pressure 137 mm[Hg] Nubia Jay RN [facility] [employer] [facility].; [employer] [facility] [employer], Inc. Comment on above: Patient Position: Sitting; Cuff Location : Left Arm; Cuff Size: Large 03-01-2016 15:53-0400 Body height 170.81 cm Nubia Jay RN [facility] [employer] [facility], [employer].; [employer] [facility] [employer] [facility], Inc. 03-01-2016 15:53-0400 Body mass index (BMI) [Ratio] 30.78 kg/m2 Nubia Jay RN [facility] [employer] [facility].; [employer] [facility] [employer] [facility], Inc. 03-01-2016 15:53-0400 Body surface area Derived from formula 2.02 m2 Nubia Jay RN [facility] [employer].; [employer] [facility] [employer]20[employer], Inc. 03-01-2016 15:53-0400 Body temperature 99.4 [degF] Nubia Jay RN [facility] [employer] [facility].; [email or web address] [facility] [employer], Inc. Comment on above: Method: Oral 03-01-2016 15:53-0400 Body weight 89.81 kg Nubia Jay RN [facility] [employer] [facility].; [employer] [facility] [employer] [facility] Inc. 03-01-2016 15:53-0400 Diastolic blood pressure 83 mm[Hg] Nubia Jay RN [facility] [employer] [facility].; [employer] [facility] [employer] [facility], [employer]. Comment on above: Patient Position: Sitting; Cuff Location : Left Arm; Cuff Size: Large 03-01-2016 15:53-0400 Heart rate 96 /min Nubia Jay RN [facility] [employer] [facility].; [employer] [facility] [employer]20[employer], Inc. Comment on above: Pattern: Regular 03-01-2016 15:53-0400 Systolic blood pressure 137 mm[Hg] Nubia Jay RN [facility] [employer] [facility].; [employer] [facility] [employer] [facility], [employer]. Comment on above: Patient Position: Sitting; Cuff Location : Left Arm; Cuff Size: Large 11-25-2011 11:20-0400 Body height 170.18 cm Magda Crespo RN [facility] [employer] [facility].; [employer] [facility] [employer] [facility], Inc. 11-25-2011 11:20-0400 Body mass index (BMI) [Ratio] 28.82 kg/m2 Magda Crespo RN [facility] [employer] [facility].; [employer] [facility] [employer] [facility], Inc. 11-25-2011 11:20-0400 Body surface area Derived from formula 1.95 m2 Magda Crespo RN [facility] [employer] [facility], [employer].; [employer] [facility] [employer] [facility], Inc. 11-25-2011 11:20-0400 Body weight 83.46 kg Magda Crespo RN [facility] [employer] [facility].; [employer] [facility] [employer], [employer]. 11-25-2011 11:20-0400 Diastolic blood pressure 71 mm[Hg] Magda Crespo RN [facility] [employer] [facility].; [employer] [facility] [employer], Inc. Comment on above: Patient Position: Sitting; Cuff Location : Left Arm; Cuff Size: Large 11-25-2011 11:20-0400 Heart rate 77 /min Magda Crespo RN [facility] [employer] [facility].; [employer] [facility] [employer]20[employer], Inc. Comment on above: Pattern: Regular 11-25-2011 11:20-0400 Systolic blood pressure 107 mm[Hg] Magda [facility]resp[facility] RN [facility] Comment on above: Patient Position: Sitting; Cuff Location : Left Arm; Cuff Size: Large Encounters Encounter Date Encounter Type Care Provider Facility Start: 03-21-2024 End: 03-21-2024 Office outpatient visit 25 minutes SHIMA BLANKENSHIP [facility] Start: 02-28-2023 End: 02-28-2023 Office outpatient visit 25 minutes SHIMA BLANKENSHIP MD [facility] Start: 06-17-2022 End: 06-17-2022 Office outpatient visit 15 minutes SHIMA BLANKENSHIP MD [facility] Start: 01-20-2022 End: 01-20-2022 Results Review SHIMA BLANKENSHIP MD [facility] Start: 01-17-2022 End: 01-17-2022 Lab Only SHIMA BLANKENSHIP MD [facility] Start: 01-17-2022 End: 01-17-2022 Office outpatient visit 15 minutes SHIMA BLANKENSHIP MD [facility] Start: 12-24-2021 End: 12-25-2021 ambulatory SHIAM BLANKENSHIP [facility] Start: 04-19-2021 End: 04-19-2021 ambulatory SHIMA BLANKENSHIP [facility] Start: 03-22-2021 End: 03-22-2021 Results Review SHIMA BLANKENSHIP MD [facility] Start: 02-11-2021 End: 02-11-2021 Historical Summary SHIMA BLANKENSHIP MD [facility] Start: 02-11-2021 End: 02-11-2021 Office outpatient visit 25 minutes SHIMA BLANKENSHIP MD [facility] Start: 08-28-2020 End: 08-28-2020 Nutrition therapy SHIMA BLANKENSHIP MD [facility] Start: 08-27-2020 End: 08-27-2020 Office outpatient visit 25 minutes SHIMA BLANKENSHIP MD [facility] Start: 02-17-2020 End: 02-17-2020 Office outpatient visit 25 minutes SHIMA BLANKENSHIP MD [facility] Start: 09-16-2019 End: 09-16-2019 Historical Summary SHIMA BLANKENSHIP MD [facility] Start: 04-03-2019 End: 04-03-2019 Nutrition therapy SHIMA BLANKENSHIP MD [facility] Start: 02-18-2019 End: 02-18-2019 Office outpatient visit 25 minutes SHIMA BLANKENSHIP MD [facility] Start: 02-18-2019 End: 02-18-2019 Physical examination [facility] Start: 01-22-2019 End: 01-22-2019 Historical Summary SHIMA BLANKENSHIP MD [facility] Start: 09-16-2018 End: 09-16-2018 Nutrition therapy SHIMA BLANKENSHIP MD [facility] Start: 08-20-2018 End: 08-20-2018 Office outpatient visit 25 minutes SHIMA BLANKENSHIP MD [facility] Start: 08-20-2018 End: 08-20-2018 Physical examination SHIMA BLANKENSHIP MD Work Phone: [employer]; [employer]. Start: 03-01-2018 End: 03-01-2018 Nutrition therapy SHIMA BLANKENSHIP MD Work Phone: [place] [employer] [facility]. Start: 02-19-2018 End: 02-19-2018 Physical examination SHIMA BLANKENSHIP MD Work Phone: [place] [employer] [facility] [employer] Start: 02-19-2018 End: 02-19-2018 Office outpatient visit 25 minutes SHIMA BLANKENSHIP MD Work Phone: [employer] Start: 10-18-2017 End: 10-18-2017 Results Review SHIMA BLANKENSHIP MD Work Phone: [place] [employer] [facility] [employer] Start: 09-21-2017 End: 09-21-2017 Office outpatient visit 15 minutes SHIMA BLANKENSHIP MD Work Phone: [employer] Start: 02-20-2017 End: 02-20-2017 Office outpatient visit 15 minutes SHIMA BLANKENSHIP MD Work Phone: [employer] Start: 09-19-2016 End: 09-19-2016 Office outpatient visit 15 minutes SHIMA BLANKENSHIP MD Work Phone: [employer] Start: 07-08-2016 End: 07-08-2016 Historical Summary SHIMA BLANKENSHIP MD Work Phone: [employer]. Start: 06-21-2016 End: 06-21-2016 Follow-up encounter SHIMA BLANKENSHIP MD Work Phone: [employer] Start: 06-20-2016 End: 06-20-2016 Office outpatient visit 15 minutes SHIMA BLANKENSHIP MD [facility] Start: 06-15-2016 End: 06-15-2016 Historical Summary SHIMA BLANKENSHIP MD Work Phone: [facility] Start: 03-01-2016 End: 03-01-2016 Office outpatient visit 15 minutes SHIMA BLANKENSHIP MD Work [facility]: [facility] Start: 05-16-2013 End: 05-16-2013 Results Review SHIMA BLANKENSHIP MD [facility] Start: 05-03-2013 End: 05-03-2013 Results Review SHIMA BLANKENSHIP MD Work Phone: [facility] [employer] Start: 11-25-2011 End: 11-25-2011 Patient encounter procedure SHIMA BLANKENSHIP MD Work [facility] Start: 06-26-2011 End: 06-26-2011 Results Review SHIMA BLANKENSHIP MD Work Phone: [employer] [facility] Start: 02-17-2010 End: 02-17-2010 Historical Summary SHIMA BLANKENSHIP MD Work Phone: [place] [employer] [facility] Procedures Date Procedure Procedure Detail Performing Clinician Start: 03-21-2024 End: 03-21-2024 Dischrg meds reconciled w/current med list SHIMA BLANKENSHIP MD Work Phone: Start: 02-28-2023 End: 02-28-2023 Dischrg meds reconciled w/current med list SHIMA BLANKENSHIP MD Work Phone: Start: 02-28-2023 End: 02-28-2023 Destruction premalignant lesion 1st SHIMA BLANKENSHIP MD Work Phone: Start: 06-17-2022 End: 06-17-2022 Dischrg meds reconciled w/current med list Eric OLIVO MD Work Phone: Start: 01-17-2022 End: 01-17-2022 Dischrg meds reconciled w/current med list SHIMA BLANKENSHIP MD Work Phone: Start: 02-11-2021 End: 02-11-2021 Dischrg meds reconciled w/current med list SHIMA BLANKENSHIP MD Work Phone: Start: 02-11-2021 End: 02-11-2021 Urinary Incontinence SHIMA BLANKENSHIP MD Work Phone: Comment on above: Negative. Start: 09-02-2020 End: 09-02-2020 Vaccination given SHIMA BLANKENSHIP MD Work Phone: Comment on above: Pfizer second vacc. was 11/23/20 Start: 08-27-2020 End: 08-27-2020 Dischrg meds reconciled w/current med list SHIMA BLANKENSHIP MD Work Phone: Start: 02-17-2020 End: 02-17-2020 Dischrg meds reconciled w/current med list SHIMA BLANKENSHIP MD Work Phone: Start: 02-18-2019 End: 02-18-2019 Dischrg meds reconciled w/current med list EMEKA BLANKENSHIP MD Work Phone: Start: 02-18-2019 End: 02-18-2019 Fall Risk Assessment SHIMA BLANKENSHIP MD Work Phone: Comment on above: 0 Start: 02-18-2019 End: 02-18-2019 Falls risk assessment documented EMEKA BLANKENSHIP MD Work Phone: Start: 01-21-2019 End: 01-21-2019 Shingrix SHIMA BLANKENSHIP MD Work Phone: Comment on above: Had immunization. Start: 08-20-2018 End: 08-20-2018 Dischrg meds reconciled w/current med list EMEKA BLANKENSHIP MD Work Phone: Start: 08-20-2018 End: 08-20-2018 Falls risk assessment documented EMEKA BLANKENSHIP MD Work Phone: Start: 02-19-2018 End: 02-19-2018 Falls risk assessment documented EMEKA BLANKENSHIP MD Work Phone: Start: 02-20-2017 End: 02-20-2017 Fall Risk Assessment SHIMA BLANKENSHIP MD Work Phone: Start: 02-20-2017 End: 02-20-2017 Falls risk assessment documented EMEKA BLANKENSHIP MD Work Phone: Start: 07-05-2016 End: 07-05-2016 Coronary angiography KEATON BARFIELD Comment on above: 3V CAD, stent to RCA ; Dr Callejas ([facility]) Start: 06-01-2016 End: 06-01-2016 Cardiovascular Stress Test - Cardiolyte KEATON BARFIELD Comment on above: Negative. EF 65%; Dr Callejas Start: 05-01-2013 End: 05-01-2013 Cardiovascular stress testing KEATON BARFIELD Comment on above: Dr Callejas, , EF 65 % Start: 11-25-2011 End: 11-25-2011 Adacel SHIMA BLANKENSHIP MD Work Phone: Cardiac stent x1 JAMES Portillo RNspacer type bar and segment stres s testing KEATON BARFIELD Comment on above: 06/22/11, sees Dr Jessica Gilbert cyst JAMES MILIAN RN Comment on above: Age 19 years Plan of Treatment Date Care Activity Detail Author Start: 03-21-2024 Assay of prostate specific antigen total PSA (85226) Start: 21-Mar-2024 15:45-04:00 Request [employer].; [facility] [employer] [facility]. Start: 03-21-2024 Hemoglobin glycosyla peri a1c HGB A1C (99041) Start: 21-Mar-2024 15:45-04:00 Request [employer].; [facility] [employer] [facility], [employer]. Start: 02-28-2023 Hemoglobin glycosyla peri a1c HGB A1C ([id number]) Start: 28-Feb-2023 11:18-04:00 Request [employer].; [facility] [employer] [facility], [employer]. Start: 02-28-2023 Lipid panel LIPID PANEL (8 0061) Start: 28-Feb-2023 11:18-04:00 Request [employer].; [facility] [employer] [facility], Inc. Start: 02-28-2023 Comprehensive metabo lic panel CMP - COMPREHENSIVE METABOLIC PANEL ([id number]) Start: 28-Feb-2023 11:17-04:00 Request [employer].; [facility] [employer], Inc. Start: 01-17-2022 Hemoglobin glycosyla peri a1c HGB A1C (99419) Start: 17-Jan-2022 15:58-04:00 Request [employer].; [facility] [employer], [employer]. Start: 02-11-2021 Hemoglobin glycosyla peri a1c HGB A1C (94132) Start: 11-Feb-2021 13:33-04:00 Request [employer].; [facility] [employer], [employer]. Start: 08-27-2020 Hemoglobin glycosyla peri a1c HGB A1C (42497) Start: 27-Aug-2020 13:28-05:00 Request [employer].; [facility] [employer], [employer]. Start: 08-27-2020 Lipid panel LIPID PANEL (8 0061) Start: 27-Aug-2020 13:28-05:00 Request [employer].; [facility] [employer], Inc. Start: 08-27-2020 Comprehensive metabo lic panel CMP - COMPREHENSIVE METABOLIC PANEL ([id number]) Start: 27-Aug-2020 13:28-05:[address] [employer] [facility] Grid20/20, [employer]. Start: 08-27-2020 Assay of prostate specific antigen total PSA (69341) Start: 27-Aug-2020 13:27-05:00 Request [employer].; [place] [employer] [facility] Grid20/[employer], Inc. Start: 02-18-2019 Patient Education [facility] [employer].; [facility], [employer]. Start: 02-18-2019 Hemoglobin glycosyla peri a1c HGB A1C (74565) Start: 18-Feb-2019 10:40-04:00 Request [employer].; [employer]. Start: 02-18-2019 Comprehensive metabo lic panel CMP - COMPREHENSIVE METABOLIC PANEL (17128) Start: 18-Feb-2019 10:40-04:00 Request [employer].; [employer]. Start: 08-20-2018 Patient Education [employer].; [employer], [employer]. Start: 08-20-2018 Hemoglobin glycosyla peri a1c HGB A1C (01371) Start: 20-Aug-2018 10:23-05:00 Request [employer].; [employer]. Start: 08-20-2018 Lipid panel LIPID PANEL (8 0061) Start: 20-Aug-2018 10:23-05:00 Request [employer].; [employer], [employer]. Start: 08-20-2018 Comprehensive metabo lic panel CMP - COMPREHENSIVE METABOLIC PANEL ([id number]) Start: 20-Aug-2018 10:23-05:00 Request [employer].; [employer]. Start: 02-19-2018 Im adm prq id subq/i m njxs ea vaccine IMMUNIZATION ADMIN EACH ADD (15947) Start: 19-Feb-2018 Intent [employer].; [employer]. Start: 02-19-2018 Hemoglobin glycosyla peri a1c HGB A1C ([id number]) Start: 19-Feb-2018 10:53-04:00 Request [employer].; [employer]. Start: 02-19-2018 Lipid panel LIPID PANEL (8 0061) Start: 19-Feb-2018 10:53-04:00 Request [employer].; [employer], [employer]. Start: 02-19-2018 Comprehensive metabo lic panel CMP - COMPREHENSIVE METABOLIC PANEL ([id number]) Start: 19-Feb-2018 10:52-04:00 Request [employer].; [employer], [employer]. Start: 09-21-2017 Patient Education [employer].; [employer], Inc. Start: 09-21-2017 Hemoglobin glycosyla peri a1c HGB A1C (16643) Start: 21-Sep-2017 11:50-04:00 Request [employer].; [employer], Inc. Start: 09-21-2017 Lipid panel LIPID PANEL (8 0061) Start: 21-Sep-2017 11:50-04:00 Request [employer].; [employer], Inc. Start: 09-21-2017 Comprehensive metabo lic panel CMP - COMPREHENSIVE METABOLIC PANEL (14710) Start: 21-Sep-2017 11:50-04:00 Request [employer].; [employer], Inc. Start: 09-21-2017 Blood count complete auto&auto difrntl wbc CBC, PLATELETS & AUT DIFF (38203) Start: 21-Sep-2017 11:49-04:00 Request SpunLive.; [employer] Start: 02-20-2017 Patient Education [employer].; [employer], Inc. Start: 02-20-2017 Creatine kinase total CPK TOTA L (45644) Start: 20-Feb-2017 11:20-04:00 Request [employer].; [employer], Inc. Start: 02-20-2017 Lipid panel LIPID PANEL (8 0061) Start: 20-Feb-2017 11:20-04:00 Request [employer].; [employer], Inc. Start: 09-19-2016 Patient Education [employer].; [employer] Start: 06-20-2016 Patient Education HYPERTENSION Indication: Benign hypertension Start: 20-Jun-2016 Instruction Type: Patient Education [employer], Inc. Immunizations Immunization Date Immunization Notes Care Provider [facility] 04-19-2021 COVID-Pfizer (30 MCG/0.3 ML) SHIMA BLANKENSHIP MD Work Phone: [facility]; [facility] Comment on above: at [facility] 09-23-2020 COVID-Pfizer (30 MCG/0.3 ML) SHIMA BLANKENSHIP MD Work Phone: [facility]; [facility] 09-02-2020 COVID-Pfizer (30 MCG/0.3 ML) SHIMA BLANKENSHIP MD Work Phone: [facility]; [facility] 09-13-2019 influenza virus vaccine, unspecified formulation SHIMA BLANKENSHIP MD Work Phone: [facility]; [facility] Comment on above: [facility] 09-13-2019 influenza, injectabl e, quadrivalent, contains preservative SHIMA BLANKENSHIP MD Work Phone: [facility]; [facility] Comment on above: at Pharmacy 01-21-2019 zoster vaccine recombinant SHIMA BLANKENSHIP MD Work Phone: [facility]; [facility] Comment on above: [facility] 02-19-2018 *IMMUNIZATION ADMIN ([id number]) SHIMA BLANKENSHIP MD Work Phone: [facility]; [facility] 02-19-2018 pneumococcal conjuga te vaccine, 13 valent SHIMA BLANKENSHIP MD Work Phone: [facility]; [facility] Comment on above: Site: Left DeltoidVI S Given: * Multiple Vaccines (DTaP, Hib, Hepatitis B, Polio, and PCV13) (05/14/15) 09-19-2016 pneumococcal conjuga te vaccine, 13 valent SHIMA BLANKENSHIP MD Work Phone: [facility]; [facility] Comment on above: Advised 09-19-2016 pneumococcal Conjuga te, unspecified formulation SHIMA BLANKENSHIP MD Work Phone: [facility]; [facility] Comment on above: Advised 09-19-2016 zoster vaccine, live SHIMA BLANKENSHIP MD Work Phone: [facility]; [facility] Comment on above: Advised 11-25-2011 tetanus toxoid, redu laura diphtheria toxoid, and acellular pertussis vaccine, adsorbed SHIMA BLANKENSHIP MD Work Phone: [facility]; [facility] Comment on above: Site: Deltoid (Right ) 11-25-2011 *IMMUNIZATION ADMIN ([id number]) SHIMA BLANKENSHIP MD Work Phone: [facility]; [facility] Payers Date Payer Category Payer Unknown [id number] [id number] [id number] 1950 Unknown [id number] Medicare Unknown [id number] Unknown ANTHEM Social History Date Type Detail Facility Alcohol Use: Alcohol Use: ; N o Alcohol Use. [facility]; [facility] Current Work/Study Status Current Work/St udy Status [facility] [facility] Tobacco use: Tobacco use: ; N ever smoker. [facility]; [facility] Work Phone: Never smoked tobacco [facility]; [facility] Work Phone: History and physical note 07-06-2022 Note Date & Type Note Facility 01-12-2022 Note [facility] HISTORY & PHYSICAL NAME ACCOUNT SEX AGE ADMIT DISCHARGE PT MED. RECORD# NUMBER DATE DATE TYPE PALLAVI [id number] David Connell 12/24/21 12/25/21 Alfredo Sanchez [id number] ROOM: 304MO DATE OF : 50 DICTATING PHYSICIAN: Dario Sousa HISTORY & PHYSICAL/DISCHARGE SUMMARY CHIEF COMPLAINT: Fall with possible syncope. FINAL DIAGNOSIS: Mild concussion. HISTORY OF PRESENT ILLNESS: This is a 71-year-old male with a past medical history significant for coronary artery disease with previous stent placement who is moving from one house to another. He was up on a ladder about 3 steps. He was drilling with his arms in the air. He felt the floor to be slippery under the ladder, and it kept scooting underneath him and then suddenly he fell. He remembers falling. However, after that his states that he had memory difficulties for about 30 minutes. No open trauma. He did not have any chest pain prior to that, dizziness, or other acute abnormalities. He was brought to the Emergency Room. He said he was possibly dehydrated, as he was working on the house and has not been taking his medications as prescribed. He is missing medications and then trying to catch up and take one. In the Emergency Room, work-up was negative. He had a CT which showed no acute abnormalities. He had cervical spine work-up, as he had some neck pain. He had fallen on the back of his head. PAST MEDICAL HISTORY: Coronary artery disease with previous stent placement. Last stress test was in April of 2021. PAST SURGICAL HISTORY: Stent placement. MEDICATIONS: (1) Atorvastatin 80 mg daily. (2) Plavix 75 mg daily. (3) Losartan 25 mg daily. (4) Metoprolol succinate 25 mg daily. (5) Niacin 500 mg daily. (6) Zinc 50 mg as directed. ALLERGIES: No known drug allergies. FAMILY HISTORY: Mother with cancer. Father at age 90. He had a history of coronary artery disease but then had Alzheimer's dementia. SOCIAL HISTORY: He is . He lives at home with his spouse. He does not smoke nor drink alcohol. REVIEW OF SYSTEMS: He has no headache or acute visual changes. No recent Page 1 of 3 OLIVOIMMANUEL History & Physical IMMANUEL OLIVO :1950 weight changes, fever or chills. No chest pain. No shortness of breath. No previous syncope. No abdominal pain. No bowel or bladder changes. PHYSICAL EXAMINATION GENERAL APPEARANCE: The patient was lying in bed in no acute distress. He is an alert, pleasant, cooperative, well-developed, well-nourished, 71-year-old male. VITAL SIGNS: Blood pressure is 120/70, heart rate 62, respirations 16, temperature 98, and oxygen saturation 95% on room air. Weight is 190 pounds. BMI is 20.04. HEENT: Normocephalic and atraumatic. PERRLA. Conjunctivae are not injected. External pinna with no lesions. Nares are patent. No erythema. No exudate. NECK: Supple. No JVD. LUNGS: Normal respiratory effort, equal lung expansion, and clear to auscultation bilaterally. HEART: Regular rate and rhythm. No murmurs or gallops appreciated. ABDOMEN: Positive bowel sounds, soft and nontender. EXTREMITIES: Free of edema. NEUROLOGIC: He is alert and oriented. Mood, affect and memory are within normal limits. Speech is clear. He is not anxious or agitated. No focal deficits noted. DIAGNOSTIC DATA: Laboratory data showed a CBC that was unremarkable. Potassium was 3.1, BUN 22, and creatinine 1. On admission, glucose was 132 nonfasting and repeated this morning was 110. Troponin is negative. Diagnostic studies completed as above. IMPRESSIONS/PLAN: 1. Mild concussion. He had memory impairment after the fall. Whether he was syncopal, he does remember the events up until when his stated he was on the floor. His impairment has resolved. He has no acute pain or arrhythmia. He was ruled out for acute coronary syndrome. His last stress test was in April. He does wish to go home, and there have been no acute abnormalities. His was on the phone during the examination and was also updated. He has not been taking his medications as prescribed, and medication compliance was discussed, as he may have had some rebound tachycardia or hypotension, depending on which medications he was missing and then catching up on. He is clinically stable. He will be discharged home with his family. He may take acetaminophen for pain. He stated last night he had a mild headache, and it resolved with Tylenol. I did discuss the potential complications from concussion. At this point, he is stable. Page 2 of 3 IMMANUEL OLIVO History & Physical IMMANUEL OLIVO :1950 2. Coronary artery disease, on medical management, with previous stent placement. I reviewed his last stress test. He does follow up with Dr. Ismael Lentz. I will ask him to follow up with him. He states he had his carotid arteries checked 2 years ago. I do not ellis (more content not included)... [facility] Summary Purpose Family History Brother (s) Status:Active Comments:3. 1 CA D, CABG. Father Status:Active Comments: d. 90. CAD in 70's Mother Status:Active Comments: d. 50. Breast. Sister (s) Status:Active Comments:2. One 47 [place]. Brother (s) Status:Active Comments:3. 1 CA D, CABG. Father Status:Active Comments: d. 90. CAD in 70's Mother Status:Active Comments: d. 50. Breast. Sister (s) Status:Active Comments:2. One 47 [place]. Brother (s) Status:Active Comments:3. 1 CA D, CABG. Father Status:Active Comments: d. 90. CAD in 70's Mother Status:Active Comments: d. 50. Breast. Sister (s) Status:Active Comments:2. One 47 [place]. Brother (s) Status:Active Comments:3. 1 CA D, CABG. Father Status:Active Comments: d. 90. CAD in 70's Mother Status:Active Comments: d. 50. Breast. Sister (s) Status:Active Comments:2. One 47 [place]. Brother (s) Status:Active Comments:3. 1 CA D, CABG. Father Status:Active Comments: d. 90. CAD in 70's Mother Status:Active Comments: d. 50. Breast. Sister (s) Status:Active Comments:2. One 47 [place]. Brother (s) Status:Active Comments:3. 1 CA D, CABG. Father Status:Active Comments: d. 90. CAD in 70's Mother Status:Active Comments: d. 50. Breast. Sister (s) Status:Active Comments:2. One 47 [place]. Advance Directives No Advanced Directives Records FoundNo Advanced Directives Records Found Additional Source Comments (unrecognized sect ion and content) No Status Records FoundNo Status Records Found INFORMATION SOURCE (unrecogn ized section and content) DATE CREATED AUTHOR 07/17/2020 [facility] DATE CREATED AUTHOR AUTHOR'S SANDIP DENNIS 01/12/2022 [facility] FOR RECORDS PERTAINING TO PATIENTS WHO ARE OR HAVE BEEN ENROLLED IN A CHEMICAL DEPENDENCY/SUBSTANCEABUSE PROGRAM, SOME INFORMATION MAY BE OMITTED. This clinical summary was aggregated from multiple sources. Caution should be exercised in using it in the provision of clinical care. This summary normalizes information from multiple sources, and as a consequence, information in this document may materially change the coding, format and clinical context of patient data. In addition, data may be omitted in some cases. CLINICAL DECISIONS SHOULD BE BASED ON THE PRIMARY CLINICAL RECORDS. [facility] [employer] [facility]. provides no warranty or guarantee of the accuracy or completeness of information in this document.
[2024-05-01 11:13] LABS: Hemoglobin A1c 6.7 % (3.8-5.6); PSA,Total - Annual Screen 0.94 ng/mL (0.00-4.00)
== END | disposition home or self-care (01) ==
LOC: LAB 09:22
PROVIDERS: PCP Family Medicine; Referring Provider Family Medicine; Visit Provider Family Medicine
DX: R73.09 Other abnormal glucose (principal); Z12.5 Encounter for screening for malignant neoplasm of prostate
CPT/HCPCS: 36415; 83036; 84153; G0103

== ENCOUNTER → 2024-10-12 | Outpatient (CLI) | payer BC, SELFPAY ==
[2024-10-12 09:00] LABS: Hemoglobin A1c 6.4 % (<=5.6)
== END | disposition home or self-care (01) ==
LOC: LAB 08:09
PROVIDERS: PCP Family Medicine; Referring Provider Family Medicine; Visit Provider Family Medicine
DX: R73.09 Other abnormal glucose (principal)
CPT/HCPCS: 36415; 83036